=== PATIENT | female | born 1970 | race Caucasian/White ===

== ENCOUNTER 2018-05-06 06:35 | Emergency (ER) | payer MEDICAID ==
[~2018-05-06] VITALS: Ht 160 cm; Wt 85.0 kg
[~2018-05-06 06:35] MED LIST: CYCL-120 PO; DIPH-423 PO; HYDR-3965 PO; HYDR-4353 PO; IBUP-1051 PO; KETO10TA2 PO; LEVO500T89 PO; MACROBID PO; PHEN-786 PO; SUCR1ORA2 PO
[2018-05-06 06:58] LABS: CLARITY,URINE CLOUDY (Clear); COLOR,URINE RED (Yellow); GLUCOSE, URINE NEGATIVE (Neg); KETONES,URINE NEGATIVE (Neg); LEUKOCYTE ESTERASE ,URINE NEGATIVE (Neg); NITRITES, URINE NEGATIVE (Neg); OCCULT BLOOD,URINE LARGE (Neg); PH,URINE 5.5 (4.8-8.0); PROTEIN,URINE 30 mg/dl (Neg); UROBILINOGEN,URINE 0.2 E.U/dL (0.2-1.0)
[2018-05-06 07:05] LABS: UA COLLECTION TYPE CLN CATCH MIDSTREAM
[2018-05-06 07:15] LABS: RBC,URINE TNTC /HPF (0-2); URINE HCG NEGATIVE (NEG); WBC,URINE 0-4 /HPF (0-4)
[2018-05-06 07:16] LABS: BACTERIA,URINE FEW /HPF (Neg); CAL OXALATE CRYSTALS 2+ /HPF (NEGATIVE); MUCUS STRANDS NONE SEEN /LPF (Neg); SQUAMOUS EPITHELIAL CELL,UR FEW /LPF (FEW)
[2018-05-06] MEDS ORDERED: LIDOcaine 2% 10ml TOPICAL JELLY (Urojet) MM ONE (07:25)
[2018-05-06] MEDS ORDERED: CEPH500C5 PO (07:54)
[2018-05-06] MEDS ORDERED: PHEN-716 PO (07:54)
[2018-05-06 08:02] VITALS: BP 136/80
== END 2018-05-06 08:35 | disposition home or self-care (01) ==
LOC: ER 06:35
DX: N93.9 Abnormal uterine and vaginal bleeding, unspecified (principal); R31.9 Hematuria, unspecified; R10.30 Lower abdominal pain, unspecified; M54.5 Low back pain; R39.15 Urgency of urination; R50.9 Fever, unspecified; Z86.73 Personal history of transient ischemic attack (TIA), and cerebral infarction without residual deficits; Z56.0 Unemployment, unspecified; Z88.2 Allergy status to sulfonamides; Z88.8 Allergy status to other drugs, medicaments and biological substances
CPT/HCPCS: 51702; 81001; 81025; 99284

== ENCOUNTER 2021-03-02 07:30 | Inpatient (IN) | payer MEDICAID ==
[~2021-03-02] VITALS: Ht 162.6 cm; Wt 85.0 kg
[2021-03-02] MEDS ORDERED: pantoprazole 40 MG vial IV ONE (08:20)
--- NOTE | 2021-03-02 08:29 | NUR ---
difficult iv start.
[2021-03-02] MEDS ORDERED: ondansetron/PF 4mg/2ml inj IV ONE (09:20)
[2021-03-02] MEDS ORDERED: normal saline 1000ML IV soln IVB ONE ×3 (09:20→11:40)
[2021-03-02 09:27] LABS: EOSINOPHILS % (AUTO) 0 % (0-6); WHITE BLOOD COUNT 5.9 X10'3 (4.5-11.0)
[2021-03-02 09:29] LABS: BASOPHILS % (AUTO) 0.4 % (0-1); HEMATOCRIT 51.1 % (35.0-45.0); HEMOGLOBIN 16.4 g/dl (12.0-16.0); LYMPHOCYTES # (AUTO) 0.6 X10'3 (1.1-4.8); LYMPHOCYTES % (AUTO) 10.5 % (21-51); MEAN CORPUSCULAR HEMOGLOBIN 26.8 PG (27.0-31.0); MEAN CORPUSCULAR HGB CONC 32.1 g/dL (33.0-36.5); MEAN CORPUSCULAR VOLUME 83.6 FL (78-98); MONOCYTES # (AUTO) 0.4 X10'3 (0-0.9); MONOCYTES % (AUTO) 6.4 % (2-12); NEUTROPHILS # (AUTO) 4.8 X10'3 (1.8-7.7); NEUTROPHILS % (AUTO) 82.7 % (42-75); PLATELET COUNT 154 X10'3 (140-440); RED BLOOD COUNT 6.11 X10'6 (4.20-5.60); RED CELL DISTRIBUTION WIDTH 15.1 % (11.5-14.5)
[2021-03-02 09:38] LABS: ALANINE AMINOTRANSFERASE 27 U/L (12-78); ALBUMIN 2.8 G/DL (3.4-5.0); ALBUMIN/GLOBULIN RATIO 0.5 (1.1-1.5); ALKALINE PHOSPHATASE 172 IU/L (46-116); ANION GAP 27 (8-16); ASPARTATE AMINO TRANSFERASE 20 U/L (10-37); BILIRUBIN,TOTAL 0.5 MG/DL (0.1-1.0); BLOOD UREA NITROGEN 23 MG/DL (7-18); BUN/CREATININE RATIO 18.7 (6.6-38.0); CALCIUM 9.1 MG/DL (8.5-10.1); CHLORIDE 100 MMOL/L (99-107); CREATININE 1.23 MG/DL (0.40-0.90); GLUCOSE 445 MG/DL (70-104); LIPASE 60 U/L (73-393); POTASSIUM 4.2 MMOL/L (3.5-5.1); SODIUM 138 MMOL/L (135-145); TOTAL PROTEIN 8.4 G/DL (6.4-8.2); eGFR 46 ML/MIN
[2021-03-02 09:42] LABS: TOTAL CARBON DIOXIDE 11.5 MMOL/L (24-32)
[2021-03-02 10:10] LABS: PLATELET ESTIMATE NORMAL; TOTAL CELLS COUNTED 100
[2021-03-02 10:13] LABS: C-REACTIVE PROTEIN 17.73 MG/DL (0.0-0.5)
[2021-03-02 10:15] LABS: SPHEROCYTES 1+
[2021-03-02 10:16] LABS: LARGE PLATELETS MODERATE; TOXIC GRANULATION 2+
[2021-03-02 10:39] LABS: ABG BASE EXCESS -14.5 mmol/L (-2.0-2.0); ABG HCO3 9.1 mmol/L (22.0-26.0); ABG PCO2 (T) 18.7 mmHg (32.0-45.0); ABG PO2 (T) 73.3 mmHg (75.0-100.0); ALLEN'S TEST POSITIVE; FCOHb 0.3 % (0.0-3.9); FMetHb 0.1 % (0.0-1.5); FO2Hb 93.6 % (94-97); PATIENT TEMPERATURE 36.6; TOTAL HEMOGLOBIN 16.2 G/dl (12.0-16.0)
[2021-03-02 12:07] LABS: CLARITY,URINE SLIGHTLY CLOUDY (Clear); COLOR,URINE YELLOW (Yellow); GLUCOSE, URINE >=1000 mg/dl (Neg); KETONES,URINE >=80 mg/dl (Neg); LEUKOCYTE ESTERASE ,URINE NEGATIVE (Neg); NITRITES, URINE NEGATIVE (Neg); OCCULT BLOOD,URINE TRACE-INTACT (Neg); PH,URINE 5.5 (4.8-8.0); PROTEIN,URINE 30 mg/dl (Neg); UROBILINOGEN,URINE 0.2 E.U/dL (0.2-1.0)
[2021-03-02 12:26] LABS: UA COLLECTION TYPE VOIDED
[2021-03-02 12:27] LABS: BACTERIA,URINE FEW /HPF (Neg); SQUAMOUS EPITHELIAL CELL,UR MANY /LPF (FEW); WBC,URINE 0-4 /HPF (0-4)
[2021-03-02 12:28] LABS: MUCUS STRANDS MODERATE /LPF (Neg)
[2021-03-02 13:43] LABS: ALANINE AMINOTRANSFERASE 23 U/L (12-78); ALBUMIN 2.4 G/DL (3.4-5.0); ALBUMIN/GLOBULIN RATIO 0.5 (1.1-1.5); ALKALINE PHOSPHATASE 153 IU/L (46-116); ANION GAP 21 (8-16); ASPARTATE AMINO TRANSFERASE 16 U/L (10-37); BILIRUBIN,TOTAL 0.4 MG/DL (0.1-1.0); BLOOD UREA NITROGEN 20 MG/DL (7-18); BUN/CREATININE RATIO 17.9 (6.6-38.0); CALCIUM 7.9 MG/DL (8.5-10.1); CHLORIDE 109 MMOL/L (99-107); CREATININE 1.12 MG/DL (0.40-0.90); GLUCOSE 352 MG/DL (70-104); POTASSIUM 4.2 MMOL/L (3.5-5.1); SODIUM 144 MMOL/L (135-145); TOTAL PROTEIN 7.3 G/DL (6.4-8.2); eGFR 52 ML/MIN
[2021-03-02 13:52] LABS: TOTAL CARBON DIOXIDE 13.6 MMOL/L (24-32)
--- NOTE | 2021-03-02 14:18 | NUR ---
DR MCKEON AT BEDSIDE .
[2021-03-02] MEDS ORDERED: ondansetron/PF 4mg/2ml inj IV PRN (14:30)
[2021-03-02] MEDS ORDERED: mag hydrox/Alum hydrox/simeth 30ml oral suspension PO PRN (14:30)
[2021-03-02] MEDS ORDERED: acetaminophen 325mg tablet PO PRN (14:30)
[2021-03-02] MEDS ORDERED: magnesium hydroxide 30ml (MOM) UD suspension PO PRN (14:30)
[2021-03-02] MEDS ORDERED: dextrose 50%-water 50ml dispensing syringe IV PRN ×2 (14:40)
[2021-03-02] MEDS ORDERED: dextrose ORAL solution 15 GM/59 ML bottle PO PRN ×2 (14:40)
[2021-03-02] MEDS ORDERED: MESSAGE TO PHARMACY PO ONE (14:40)
[2021-03-02] MEDS ORDERED: glucagon, human recombinant 1mg kit SUBCUT PRN (14:40)
[2021-03-02] MEDS: normal saline 1000ml 1,000 ML IV SCH ×2 (16:25→21:34)
[2021-03-02 17:55] LABS: BASOPHILS % (AUTO) 0.3 % (0-1); EOSINOPHILS % (AUTO) 0 % (0-6); HEMATOCRIT 50.3 % (35.0-45.0); HEMOGLOBIN 15.9 g/dl (12.0-16.0); LYMPHOCYTES # (AUTO) 0.8 X10'3 (1.1-4.8); LYMPHOCYTES % (AUTO) 15.3 % (21-51); MEAN CORPUSCULAR HEMOGLOBIN 27.4 PG (27.0-31.0); MEAN CORPUSCULAR HGB CONC 31.7 g/dL (33.0-36.5); MEAN CORPUSCULAR VOLUME 86.4 FL (78-98); MEAN PLATELET VOLUME 10.8 FL (7.4-10.4); MONOCYTES # (AUTO) 0.5 X10'3 (0-0.9); NEUTROPHILS # (AUTO) 3.9 X10'3 (1.8-7.7); NEUTROPHILS % (AUTO) 75.4 % (42-75); PLATELET COUNT 149 X10'3 (140-440); RED BLOOD COUNT 5.82 X10'6 (4.20-5.60); RED CELL DISTRIBUTION WIDTH 15.2 % (11.5-14.5); WHITE BLOOD COUNT 5.2 X10'3 (4.5-11.0)
[2021-03-02 17:57] LABS: ALBUMIN 2.4 G/DL (3.4-5.0); ANION GAP 17 (8-16); BLOOD UREA NITROGEN 16 MG/DL (7-18); BUN/CREATININE RATIO 13.8 (6.6-38.0); CHLORIDE 108 MMOL/L (99-107); CREATININE 1.16 MG/DL (0.40-0.90); GLUCOSE 302 MG/DL (70-104); POTASSIUM 4.9 MMOL/L (3.5-5.1); SODIUM 142 MMOL/L (135-145); eGFR 50 ML/MIN
[2021-03-02 18:53] LABS: LARGE PLATELETS FEW; PLATELET ESTIMATE NORMAL
[2021-03-02 18:54] LABS: ANISOCYTOSIS 1+
[2021-03-02] MEDS: docusate sod 100mg capsule PO SCH (19:55)
[2021-03-03] MEDS: insulin Lispro (HumaLOG) vial - multi-dose SQ SCH (01:29)
[2021-03-03] MEDS: normal saline 1000ml 1,000 ML IV SCH ×5 (04:21→18:20)
[2021-03-03 05:26] LABS: BASOPHILS % (AUTO) 0.3 % (0-1); EOSINOPHILS % (AUTO) 0 % (0-6); HEMATOCRIT 47.5 % (35.0-45.0); LYMPHOCYTES % (AUTO) 14.4 % (21-51); MEAN CORPUSCULAR HEMOGLOBIN 27.7 PG (27.0-31.0); MEAN CORPUSCULAR HGB CONC 31.7 g/dL (33.0-36.5); MEAN CORPUSCULAR VOLUME 87.3 FL (78-98); MEAN PLATELET VOLUME 10.8 FL (7.4-10.4); MONOCYTES # (AUTO) 0.7 X10'3 (0-0.9); MONOCYTES % (AUTO) 10.1 % (2-12); NEUTROPHILS # (AUTO) 5.4 X10'3 (1.8-7.7); NEUTROPHILS % (AUTO) 75.2 % (42-75); PLATELET COUNT 152 X10'3 (140-440); RED BLOOD COUNT 5.44 X10'6 (4.20-5.60); RED CELL DISTRIBUTION WIDTH 15.5 % (11.5-14.5); WHITE BLOOD COUNT 7.1 X10'3 (4.5-11.0)
[2021-03-03 07:56] LABS: ALANINE AMINOTRANSFERASE 21 U/L (12-78); ALBUMIN 2.3 G/DL (3.4-5.0); ALBUMIN/GLOBULIN RATIO 0.5 (1.1-1.5); ALKALINE PHOSPHATASE 139 IU/L (46-116); ANION GAP 19 (8-16); ASPARTATE AMINO TRANSFERASE 15 U/L (10-37); BILIRUBIN,TOTAL 0.4 MG/DL (0.1-1.0); BLOOD UREA NITROGEN 13 MG/DL (7-18); BUN/CREATININE RATIO 13.8 (6.6-38.0); CHLORIDE 113 MMOL/L (99-107); CREATININE 0.94 MG/DL (0.40-0.90); GLUCOSE 270 MG/DL (70-104); POTASSIUM 4.1 MMOL/L (3.5-5.1); SODIUM 145 MMOL/L (135-145); TOTAL PROTEIN 7.1 G/DL (6.4-8.2); eGFR 63 ML/MIN
[2021-03-03] MEDS: docusate sod 100mg capsule PO SCH ×2 (08:00→20:14)
[2021-03-03] MEDS: pantoprazole 40 MG vial IV SCH (08:10)
--- NOTE | 2021-03-03 08:35 | NUR ---
called dr navarro for pt co2 12.9 order for abg ,ordered abg on pt ,paged rt .will wait for rt .
[2021-03-03 08:50] LABS: TOTAL CARBON DIOXIDE 12.7 MMOL/L (24-32)
[2021-03-03 09:01] LABS: ABG BASE EXCESS -14.6 mmol/L (-2.0-2.0); ABG HCO3 9.8 mmol/L (22.0-26.0); ABG OXYGEN SATURATION 94.7 % (94-97); ABG PCO2 (T) 21.4 mmHg (32.0-45.0); ABG PO2 (T) 76.2 mmHg (75.0-100.0); ALLEN'S TEST POSITIVE; FCOHb 0.5 % (0.0-3.9); FMetHb 0.1 % (0.0-1.5); FO2Hb 94.1 % (94-97); TOTAL HEMOGLOBIN 15.3 G/dl (12.0-16.0)
--- NOTE | 2021-03-03 09:30 | NUR ---
lab at bedside .
[2021-03-03 09:42] LABS: BASOPHILS % (AUTO) 0.2 % (0-1); EOSINOPHILS % (AUTO) 0.1 % (0-6); HEMATOCRIT 46.9 % (35.0-45.0); LYMPHOCYTES % (AUTO) 13.5 % (21-51); MEAN CORPUSCULAR HEMOGLOBIN 27.4 PG (27.0-31.0); MEAN CORPUSCULAR HGB CONC 31.9 g/dL (33.0-36.5); MEAN CORPUSCULAR VOLUME 85.8 FL (78-98); MEAN PLATELET VOLUME 10.3 FL (7.4-10.4); MONOCYTES # (AUTO) 0.7 X10'3 (0-0.9); MONOCYTES % (AUTO) 9.2 % (2-12); NEUTROPHILS # (AUTO) 5.6 X10'3 (1.8-7.7); PLATELET COUNT 160 X10'3 (140-440); RED BLOOD COUNT 5.46 X10'6 (4.20-5.60); RED CELL DISTRIBUTION WIDTH 15.1 % (11.5-14.5); WHITE BLOOD COUNT 7.2 X10'3 (4.5-11.0)
[2021-03-03 09:46] LABS: ALBUMIN 2.4 G/DL (3.4-5.0); ANION GAP 21 (8-16); BLOOD UREA NITROGEN 13 MG/DL (7-18); BUN/CREATININE RATIO 11.1 (6.6-38.0); CALCIUM 8.1 MG/DL (8.5-10.1); CHLORIDE 109 MMOL/L (99-107); CREATININE 1.17 MG/DL (0.40-0.90); GLUCOSE 342 MG/DL (70-104); POTASSIUM 4.1 MMOL/L (3.5-5.1); SODIUM 144 MMOL/L (135-145); eGFR 49 ML/MIN
[2021-03-03] MEDS ORDERED: sodium bicarbonate (8.4%) inj. 50 MEQ in dextrose 5% water 500ml 250 ML IV PRN (10:20)
[2021-03-03] MEDS ORDERED: sodium bicarbonate (8.4%) inj. 100 MEQ in dextrose 5% water 500ml 500 ML IV PRN (10:20)
[2021-03-03] MEDS ORDERED: insulin regular, human U-100 3ml vial - multi-dose IV PRN (10:20)
--- NOTE | 2021-03-03 10:22 | NUR ---
notifie ddr melanie regarding pt co2 14 as per md pt needs to be on dka protocol ,cintia order dka protocol.will follow the orders.
--- NOTE | 2021-03-03 10:47 | NUR ---
waiting for insulin drip from [facility] .
[2021-03-03] MEDS: Insulin Reg/NS 100units/100mL 100 ML IV SCH (11:35)
[2021-03-03] MEDS: sucralfate 1 gm tablet PO SCH ×3 (11:41→21:05)
[2021-03-03] MEDS ORDERED: insulin regular, human 10 units/0.1 ml syringe IV PRN (12:50)
[2021-03-03] MEDS: cyclobenzaprine 10mg tablet PO SCH ×2 (13:00→20:14)
--- NOTE | 2021-03-03 13:10 | NUR ---
DR SHERWOOD AT BEDSIDE.AWARE OF PT VITALS HR 83,SPO2 99 RA,159/107. Addendum: 03/03/21 at 1330 by [email or web address] PT INSULIN INFUSING AT 5 ML/HR AND IS AWARE.
[2021-03-03 14:31] LABS: ALBUMIN 2.3 G/DL (3.4-5.0); ANION GAP 16 (8-16); BLOOD UREA NITROGEN 11 MG/DL (7-18); BUN/CREATININE RATIO 11.7 (6.6-38.0); CHLORIDE 115 MMOL/L (99-107); CREATININE 0.94 MG/DL (0.40-0.90); GLUCOSE 194 MG/DL (70-104); PHOSPHORUS 1.6 MG/DL (2.3-4.5); POTASSIUM 3.3 MMOL/L (3.5-5.1); SODIUM 146 MMOL/L (135-145); TOTAL CARBON DIOXIDE 15.3 MMOL/L (24-32); eGFR 63 ML/MIN
[2021-03-03] MEDS: potassium CL 20mEq in D5-1/2NS 1,000 ML IV PRN ×2 (15:18→21:52)
--- NOTE | 2021-03-03 17:48 | NUR ---
RECEIVED REPORT FROM TOYA DE AND TOYA CUNHA IN ER. PT GOING TO [id number]
[2021-03-03 18:15] VITALS: BP 144/76
--- NOTE | 2021-03-03 18:22 | NUR ---
PT ARRIVED ON FLOOR AT [id number]
--- NOTE | 2021-03-03 18:55 | NUR ---
Problems reprioritized. Patient report given, questions answered & plan of care reviewed with TOYA DOOLEY.
[2021-03-03 22:00] VITALS: BP 122/64
[2021-03-03 23:35] VITALS: BP 127/72
--- NOTE | 2021-03-04 03:15 | NUR ---
PAGER ID: [phone] MESSAGE: Tamar Kothari [facility] Bed 3008 Dx: COVARMANDO PNA and DKA Clarifying DKA orders with insulin drip and fluids running. Lisa Farias [id number] Addendum: 03/04/21 at 0323 by Lisa Hopper - Traveler RN Dr Palomo contacted. Confirming that 5ml/Hr for pts insulin drip okay, stated that its correct. Protocol being continued. NS discontinued and D5+1/2NS with 20mEq K being continued at 150mL/ hr. aware of Potassium 3.3, redraw for morning labs and anion gap.
[2021-03-04] MEDS: Insulin Reg/NS 100units/100mL 100 ML IV SCH (03:43)
[2021-03-04 03:46] VITALS: BP 130/79
[2021-03-04] MEDS: potassium CL 20mEq in D5-1/2NS 1,000 ML IV PRN (04:46)
--- NOTE | 2021-03-04 04:53 | NUR ---
PAGER ID: [phone] MESSAGE: Tamar Mead [facility] room 3008 Dx DKA, Covid PNA insulin infusion at 5mL/hr and is currently having a BS of 78, trending down quickly. Lisa [phone] Addendum: 03/04/21 at 0537 by Lisa Hopper - Traveler RN Dr Palomo ordered for Insulin drip be DC and to administer 5 Units SUBQ Humulog prior to DC. Fluids of D51/2NS with 20mEqK @ 150 continued.
[2021-03-04] MEDS ORDERED: insulin regular, human 10 units/0.1 ml syringe SQ ONE (05:05)
[2021-03-04] MEDS: insulin Lispro (HumaLOG) vial - multi-dose SQ SCH ×2 (05:20→13:21)
[2021-03-04 06:11] LABS: BASOPHILS % (AUTO) 0.2 % (0-1); EOSINOPHILS % (AUTO) 0.8 % (0-6); HEMATOCRIT 42.5 % (35.0-45.0); HEMOGLOBIN 13.9 g/dl (12.0-16.0); LYMPHOCYTES # (AUTO) 1.4 X10'3 (1.1-4.8); LYMPHOCYTES % (AUTO) 26.8 % (21-51); MEAN CORPUSCULAR HEMOGLOBIN 27.3 PG (27.0-31.0); MEAN CORPUSCULAR HGB CONC 32.8 g/dL (33.0-36.5); MEAN CORPUSCULAR VOLUME 83.3 FL (78-98); MONOCYTES # (AUTO) 0.6 X10'3 (0-0.9); MONOCYTES % (AUTO) 11.7 % (2-12); NEUTROPHILS # (AUTO) 3.1 X10'3 (1.8-7.7); NEUTROPHILS % (AUTO) 60.5 % (42-75); PLATELET COUNT 167 X10'3 (140-440); RED CELL DISTRIBUTION WIDTH 14.7 % (11.5-14.5); WHITE BLOOD COUNT 5.2 X10'3 (4.5-11.0)
[2021-03-04 06:43] LABS: ALANINE AMINOTRANSFERASE 21 U/L (12-78); ALBUMIN/GLOBULIN RATIO 0.5 (1.1-1.5); ALKALINE PHOSPHATASE 115 IU/L (46-116); ANION GAP 11 (8-16); ASPARTATE AMINO TRANSFERASE 20 U/L (10-37); BILIRUBIN,TOTAL 0.5 MG/DL (0.1-1.0); BLOOD UREA NITROGEN 9 MG/DL (7-18); CHLORIDE 115 MMOL/L (99-107); CREATININE 0.75 MG/DL (0.40-0.90); GLUCOSE 73 MG/DL (70-104); SODIUM 148 MMOL/L (135-145); TOTAL CARBON DIOXIDE 21.8 MMOL/L (24-32); TOTAL PROTEIN 6.4 G/DL (6.4-8.2); eGFR 82 ML/MIN
[2021-03-04 06:45] LABS: POTASSIUM 2.9 MMOL/L (3.5-5.1)
--- NOTE | 2021-03-04 06:47 | NUR ---
Patient in room PCU 3008. I have received report from TOYA Gonzalez and had the opportunity to ask questions and assume patient care.
--- NOTE | 2021-03-04 06:49 | NUR ---
Paged Dr Palomo PAGER ID: [phone] MESSAGE: Tamar Dunn [id number] Critical K+ 2.9, Phos 1.0, down from K+3.3, Phos 1.6. Thanks Maggi [phone]
[2021-03-04 07:00] VITALS: BP 126/81
[2021-03-04] MEDS ORDERED: magnesium Cl slow-release 64mg tablet PO PRN (08:15)
[2021-03-04] MEDS ORDERED: potassium Cl 20 mEq SR tablet PO PRN ×2 (08:15)
[2021-03-04] MEDS ORDERED: potassium Cl 40MEQ/1/2NS 520ml 520 ML IV PRN (08:15)
[2021-03-04] MEDS ORDERED: magnesium 4gm in 100ml NS 100 ML IV PRN (08:15)
[2021-03-04] MEDS ORDERED: DEXAMETHASONE 6 MG TABLET PO SCH (08:21)
--- NOTE | 2021-03-04 09:38 | NUR ---
Initial: Pt admit for DKA and COVID-19. Per H&P pt lost her sense of taste and smell 1 week [employer] and had been vomiting for 4 days with poor PO intake for 5 days. Pt denied wt loss or decreased appetite per malnutrition risk screen with RN. No PMH of DM in EMR though BG 445 mg/dL on admit with A1c greater than 14.0%. TC to RN to inform that pt will need official DM diagnosis by physician prior to RD being able to provide pt with DM education. Pt currently on a clear liquid diet, documented to have refused first meal. Limited nutrition interventions given current diet order. LBM 02/27, receiving routine bowel care. Will continue to follow closely. Recommendations: 1) Advance to CHO controlled diet as medically indicated 2) Monitor need for additional protein/ONS with diet advancement 3) Routine bowel care 4) Scaled weight this admit; weekly scaled weights thereafter 5) DM education once stable following official DM dx by physician, A1c greater than 14.0% Addendum: 03/04/21 at [address] Amended: Links added.
[2021-03-04] MEDS ORDERED: potassium Cl 20 mEq SR tablet PO ONE (10:25)
[2021-03-04] MEDS ORDERED: METF-900 PO (10:37)
[2021-03-04] MEDS: docusate sod 100mg capsule PO SCH (10:38)
[2021-03-04] MEDS: pantoprazole 40 MG vial IV SCH (10:38)
[2021-03-04] MEDS: cyclobenzaprine 10mg tablet PO SCH ×2 (10:38→13:22)
[2021-03-04] MEDS: Neutra Phos packet PO SCH ×2 (10:39→13:22)
[2021-03-04] MEDS: sucralfate 1 gm tablet PO SCH ×2 (10:39→12:00)
[2021-03-04] MEDS ORDERED: INSU100C10 SQ (10:39)
--- NOTE | 2021-03-04 10:48 | NUR ---
RN TC: requests DM ed by RD as pt discharging today following new DM DX. Pt has been made aware of new MD DX this admit. Written DM ed w/ RD contact information placed in pt chart and RD contact pt via TC. Pt declines verbal DM ed at this time states "im good". RD encouraged pt to contact dietitian's office if further questions/concerns. RD notified RN of pt ed declination. Addendum: 03/04/21 at [address] Amended: Links added.
[2021-03-04 11:00] VITALS: BP 136/74
[2021-03-04] MEDS ORDERED: Neutra Phos packet PO SCH (13:00)
--- NOTE | 2021-03-04 15:54 | NUR ---
Patient discharged home per md orders. All pt belongings collected and sent with pt. Diabetic education provided, instructions were given to follow up with PCP within 1 week. PIV discontinued, cannula intact. Tele discontinued, telecommunications support informed. New RX faxed to [facility] on [address]. Wheeled pt to lobby, assisted into family vehicle.
[2021-03-04] MEDS ORDERED: K and/or MAG REPLACEMENT MC SCH (20:00)
[2021-03-04] MEDS ORDERED: enoxaparin 40mg/0.4ml syringe SUBCUT SCH (20:00)
== END 2021-03-04 15:00 | disposition home or self-care (01) | DRG 137 ==
LOC: ER 07:32 → ED HOLD 14:35 → ORTHO 4S 03-03 17:55 → PCU 3S 03-03 23:15
PROVIDERS: ADMIT Internal Medicine; ATTEND Internal Medicine
DX: U07.1 COVID-19 (principal); J12.82 Pneumonia due to coronavirus disease 2019; E13.10 Other specified diabetes mellitus with ketoacidosis without coma; K92.0 Hematemesis; E86.0 Dehydration; F17.200 Nicotine dependence, unspecified, uncomplicated; R09.02 Hypoxemia; K21.9 Gastro-esophageal reflux disease without esophagitis; E87.6 Hypokalemia; R10.13 Epigastric pain; G89.29 Other chronic pain; Z79.4 Long term (current) use of insulin; Z86.73 Personal history of transient ischemic attack (TIA), and cerebral infarction without residual deficits; Z87.11 Personal history of peptic ulcer disease; Z87.442 Personal history of urinary calculi; Z98.891 History of uterine scar from previous surgery; Z88.2 Allergy status to sulfonamides; Z88.8 Allergy status to other drugs, medicaments and biological substances; Z56.0 Unemployment, unspecified; Z79.899 Other long term (current) drug therapy
CPT/HCPCS: 36415; 36600; 71045; 80048; 80053; 81001; 82009; 82803; 82948; 83036; 83605; 83690; 84100; 84145; 85007; 85008; 85018; 85025; 86140; 87081; 87635; 99285; C9113; C9803; G0378; J1815; J2405; J3480; J7030

== ENCOUNTER 2022-05-10 19:55 | Emergency (ER) | payer MEDICAID ==
[~2022-05-10] VITALS: Ht 157.5 cm; Wt 90.0 kg
[~2022-05-10 19:55] MED LIST changes: +INSU100C10 SQ; +LEVO-65 PO; -LEVO500T89 PO
[2022-05-10 20:16] VITALS: BP 173/93
[2022-05-10 20:20] LABS: BASOPHILS % (AUTO) 0.9 % (0-1); EOSINOPHILS # (AUTO) 0.1 X10'3 (0-0.9); EOSINOPHILS % (AUTO) 2.3 % (0-6); HEMATOCRIT 39.9 % (35.0-45.0); HEMOGLOBIN 13.3 g/dl (12.0-16.0); LYMPHOCYTES # (AUTO) 1.6 X10'3 (1.1-4.8); LYMPHOCYTES % (AUTO) 31.2 % (21-51); MEAN CORPUSCULAR HEMOGLOBIN 27.6 PG (27.0-31.0); MEAN CORPUSCULAR HGB CONC 33.2 g/dL (33.0-36.5); MEAN CORPUSCULAR VOLUME 83.1 FL (78-98); MEAN PLATELET VOLUME 8.3 FL (7.4-10.4); MONOCYTES # (AUTO) 0.4 X10'3 (0-0.9); MONOCYTES % (AUTO) 7.1 % (2-12); NEUTROPHILS % (AUTO) 58.5 % (42-75); PLATELET COUNT 189 X10'3 (140-440); RED CELL DISTRIBUTION WIDTH 13.6 % (11.5-14.5); WHITE BLOOD COUNT 5.1 X10'3 (4.5-11.0)
[2022-05-10 20:38] LABS: ALANINE AMINOTRANSFERASE 45 U/L (12-78); ALBUMIN 3.3 G/DL (3.4-5.0); ALBUMIN/GLOBULIN RATIO 0.8 (1.1-1.5); ALKALINE PHOSPHATASE 147 IU/L (46-116); ANION GAP 6 (8-16); ASPARTATE AMINO TRANSFERASE 17 U/L (10-37); BILIRUBIN,TOTAL 0.6 MG/DL (0.1-1.0); BLOOD UREA NITROGEN 12 MG/DL (7-18); BUN/CREATININE RATIO 12.1 (6.6-38.0); CHLORIDE 102 MMOL/L (99-107); CREATININE 0.99 MG/DL (0.40-0.90); GLUCOSE 286 MG/DL (70-104); LIPASE 179 U/L (73-393); POTASSIUM 4.5 MMOL/L (3.5-5.1); SODIUM 139 MMOL/L (135-145); TOTAL CARBON DIOXIDE 31.1 MMOL/L (24-32); TOTAL PROTEIN 7.3 G/DL (6.4-8.2); eGFR 59 ML/MIN
== END 2022-05-11 00:43 | disposition left against medical advice (07) ==
LOC: ER 19:55
DX: R10.9 Unspecified abdominal pain (principal); Z53.21 Procedure and treatment not carried out due to patient leaving prior to being seen by health care provider
CPT/HCPCS: 36415; 80053; 83690; 85025

== ENCOUNTER 2022-05-11 05:27 | Emergency (ER) | payer MEDICAID ==
[~2022-05-11] VITALS: Ht 157.5 cm; Wt 85.9 kg
[2022-05-11 05:45] VITALS: BP 186/100
[2022-05-11 06:25] LABS: CLARITY,URINE CLEAR (Clear); COLOR,URINE YELLOW (Yellow); GLUCOSE, URINE 500 mg/dl (Neg); KETONES,URINE NEGATIVE (Neg); LEUKOCYTE ESTERASE ,URINE NEGATIVE (Neg); NITRITES, URINE NEGATIVE (Neg); OCCULT BLOOD,URINE NEGATIVE (Neg); PH,URINE 7.5 (4.8-8.0); PROTEIN,URINE NEGATIVE (Neg); UROBILINOGEN,URINE 0.2 E.U/dL (0.2-1.0)
[2022-05-11 06:40] LABS: UA COLLECTION TYPE CLN CATCH MIDSTREAM
[2022-05-11 07:01] LABS: BASOPHILS % (AUTO) 0.8 % (0-1); EOSINOPHILS # (AUTO) 0.1 X10'3 (0-0.9); EOSINOPHILS % (AUTO) 2.6 % (0-6); HEMOGLOBIN 13.4 g/dl (12.0-16.0); LYMPHOCYTES # (AUTO) 1.2 X10'3 (1.1-4.8); LYMPHOCYTES % (AUTO) 27.6 % (21-51); MEAN CORPUSCULAR HEMOGLOBIN 27.7 PG (27.0-31.0); MEAN CORPUSCULAR HGB CONC 33.5 g/dL (33.0-36.5); MEAN CORPUSCULAR VOLUME 82.8 FL (78-98); MEAN PLATELET VOLUME 8.6 FL (7.4-10.4); MONOCYTES # (AUTO) 0.3 X10'3 (0-0.9); MONOCYTES % (AUTO) 6.9 % (2-12); NEUTROPHILS # (AUTO) 2.7 X10'3 (1.8-7.7); NEUTROPHILS % (AUTO) 62.1 % (42-75); PLATELET COUNT 188 X10'3 (140-440); RED BLOOD COUNT 4.83 X10'6 (4.20-5.60); RED CELL DISTRIBUTION WIDTH 13.3 % (11.5-14.5); WHITE BLOOD COUNT 4.4 X10'3 (4.5-11.0)
[2022-05-11 07:16] LABS: ALANINE AMINOTRANSFERASE 41 U/L (12-78); ALBUMIN 3.2 G/DL (3.4-5.0); ALBUMIN/GLOBULIN RATIO 0.8 (1.1-1.5); ALKALINE PHOSPHATASE 152 IU/L (46-116); ANION GAP 7 (8-16); ASPARTATE AMINO TRANSFERASE 21 U/L (10-37); BILIRUBIN,TOTAL 0.8 MG/DL (0.1-1.0); BLOOD UREA NITROGEN 10 MG/DL (7-18); BUN/CREATININE RATIO 11.6 (6.6-38.0); CALCIUM 8.8 MG/DL (8.5-10.1); CHLORIDE 99 MMOL/L (99-107); CREATININE 0.86 MG/DL (0.40-0.90); GLUCOSE 279 MG/DL (70-104); LIPASE 193 U/L (73-393); SODIUM 134 MMOL/L (135-145); TOTAL CARBON DIOXIDE 28.1 MMOL/L (24-32); TOTAL PROTEIN 7.3 G/DL (6.4-8.2); eGFR 70 ML/MIN
== END 2022-05-11 09:11 | disposition left against medical advice (07) ==
LOC: ER 05:28
DX: R10.9 Unspecified abdominal pain (principal); Z53.21 Procedure and treatment not carried out due to patient leaving prior to being seen by health care provider
CPT/HCPCS: 36415; 80053; 81003; 83690; 85025

== ENCOUNTER 2022-06-18 15:27 | Emergency (ER) | payer MEDICAID ==
[~2022-06-18] VITALS: Ht 157.5 cm; Wt 82.0 kg
[2022-06-18 15:29] VITALS: BP 192/95
== END 2022-06-18 23:11 | disposition left against medical advice (07) ==
LOC: ER 15:27
DX: E11.649 Type 2 diabetes mellitus with hypoglycemia without coma (principal); Z53.21 Procedure and treatment not carried out due to patient leaving prior to being seen by health care provider
CPT/HCPCS: 82948

== ENCOUNTER 2022-11-22 12:43 | Emergency (ER) | payer MEDICAID ==
[~2022-11-22] VITALS: Ht 157.5 cm; Wt 99.8 kg
[2022-11-22 12:43] VITALS: BP 150/102
[2022-11-22 13:05] LABS: CLARITY,URINE SLIGHTLY CLOUDY (Clear); COLOR,URINE YELLOW (Yellow); GLUCOSE, URINE NEGATIVE (Neg); KETONES,URINE TRACE mg/dl (Neg); LEUKOCYTE ESTERASE ,URINE NEGATIVE (Neg); NITRITES, URINE NEGATIVE (Neg); OCCULT BLOOD,URINE NEGATIVE (Neg); PROTEIN,URINE NEGATIVE (Neg); UROBILINOGEN,URINE 0.2 E.U/dL (0.2-1.0)
[2022-11-22 13:07] LABS: UA COLLECTION TYPE CLN CATCH MIDSTREAM; URINE HCG NEGATIVE (NEG)
[2022-11-22 13:11] LABS: BACTERIA,URINE 1+ /HPF (Neg); CAL OXALATE CRYSTALS 3+ /HPF (NEGATIVE); MUCUS STRANDS MODERATE /LPF (Neg); RBC,URINE NONE SEEN /HPF (0-2); SQUAMOUS EPITHELIAL CELL,UR MODERATE /LPF (FEW); WBC,URINE 0-4 /HPF (0-4)
[2022-11-22 13:11] LABS: BASOPHILS % (AUTO) 0.9 % (0-1); EOSINOPHILS # (AUTO) 0.2 X10'3 (0-0.9); EOSINOPHILS % (AUTO) 3.3 % (0-6); HEMATOCRIT 42.2 % (35.0-45.0); HEMOGLOBIN 13.9 g/dl (12.0-16.0); LYMPHOCYTES # (AUTO) 2.3 X10'3 (1.1-4.8); LYMPHOCYTES % (AUTO) 44.5 % (21-51); MEAN CORPUSCULAR HEMOGLOBIN 28.1 PG (27.0-31.0); MEAN PLATELET VOLUME 8.9 FL (7.4-10.4); MONOCYTES # (AUTO) 0.3 X10'3 (0-0.9); MONOCYTES % (AUTO) 5.6 % (2-12); NEUTROPHILS # (AUTO) 2.4 X10'3 (1.8-7.7); NEUTROPHILS % (AUTO) 45.7 % (42-75); PLATELET COUNT 197 X10'3 (140-440); RED BLOOD COUNT 4.96 X10'6 (4.20-5.60); RED CELL DISTRIBUTION WIDTH 14.6 % (11.5-14.5); WHITE BLOOD COUNT 5.2 X10'3 (4.5-11.0)
[2022-11-22 13:20] LABS: ALANINE AMINOTRANSFERASE 53 U/L (12-78); ALBUMIN 3.8 G/DL (3.4-5.0); ALKALINE PHOSPHATASE 117 IU/L (46-116); ANION GAP 5 (8-16); ASPARTATE AMINO TRANSFERASE 24 U/L (10-37); BILIRUBIN,TOTAL 0.5 MG/DL (0.1-1.0); BLOOD UREA NITROGEN 18 MG/DL (7-18); BUN/CREATININE RATIO 17.8 (10.0-20.0); CHLORIDE 107 MMOL/L (99-107); CREATININE 1.01 MG/DL (0.40-0.90); GLUCOSE 109 MG/DL (70-104); LIPASE < 50 U/L (73-393); POTASSIUM 3.6 MMOL/L (3.5-5.1); SODIUM 142 MMOL/L (135-145); TOTAL CARBON DIOXIDE 29.7 MMOL/L (24-32); TOTAL PROTEIN 7.5 G/DL (6.4-8.2); eGFR 58 ML/MIN
[2022-11-22] MEDS ORDERED: HYDROcodone/acetaminophen 10/325mg tab PO ONE (14:15)
[2022-11-22] MEDS ORDERED: ondansetron 4mg rapidly disintigrating tab PO ONE (14:15)
[2022-11-22] MEDS ORDERED: OXYC-150 PO (14:39)
[2022-11-22] MEDS ORDERED: ONDA4TAB12 PO (14:39)
== END 2022-11-22 15:55 | disposition home or self-care (01) ==
LOC: ER 12:43
DX: K80.50 Calculus of bile duct without cholangitis or cholecystitis without obstruction (principal); Z87.442 Personal history of urinary calculi; Z98.890 Other specified postprocedural states; Z56.0 Unemployment, unspecified; Z88.2 Allergy status to sulfonamides; Z88.6 Allergy status to analgesic agent; Z79.899 Other long term (current) drug therapy
CPT/HCPCS: 36415; 76700; 80053; 81001; 81025; 83690; 85025; 99284

== ENCOUNTER 2024-02-12 20:25 | Emergency (ER) | payer MEDICAID ==
[~2024-02-12] VITALS: Ht 157.5 cm; Wt 81.8 kg
[~2024-02-12 20:25] MED LIST changes: +ONDA-243 PO; +OXYC-150 PO
[2024-02-12] MEDS ORDERED: AMOX500C2 PO (20:52)
[2024-02-12] MEDS: amoxicillin 250mg capsule PO ONE (22:02)
[2024-02-12] MEDS: ibuprofen tablet 400 MG TABLET PO ONE (22:02)
[2024-02-12 22:03] VITALS: BP 163/94; PULSE 89; RESP 16; TEMP 97.6; O2SAT 94
== END 2024-02-12 22:14 | disposition home or self-care (01) ==
LOC: ER 20:25
DX: K00.6 Disturbances in tooth eruption (principal); K08.89 Other specified disorders of teeth and supporting structures; Z88.2 Allergy status to sulfonamides; Z79.1 Long term (current) use of non-steroidal anti-inflammatories (NSAID); Z79.2 Long term (current) use of antibiotics; Z79.899 Other long term (current) drug therapy; Z98.890 Other specified postprocedural states
CPT/HCPCS: 99283

== ENCOUNTER 2024-07-30 14:11 | Emergency (ER) | payer MEDICAID ==
[~2024-07-30] VITALS: Ht 157.5 cm; Wt 92.7 kg
[2024-07-30 14:34] VITALS: BP 172/95; PULSE 95; RESP 18; TEMP 97.6; O2SAT 98
[2024-07-30] MEDS ORDERED: DOCU-337 PO (16:26)
== END 2024-07-30 16:34 | disposition left against medical advice (07) ==
LOC: ER 14:12
DX: K59.00 Constipation, unspecified (principal); Z86.73 Personal history of transient ischemic attack (TIA), and cerebral infarction without residual deficits; Z88.5 Allergy status to narcotic agent; Z88.8 Allergy status to other drugs, medicaments and biological substances; Z79.1 Long term (current) use of non-steroidal anti-inflammatories (NSAID); Z79.4 Long term (current) use of insulin; Z79.899 Other long term (current) drug therapy; Z87.442 Personal history of urinary calculi
CPT/HCPCS: 99282

== ENCOUNTER 2024-10-30 03:24 | Emergency (ER) | payer MEDICAID ==
[~2024-10-30] VITALS: Ht 160 cm; Wt 87.1 kg
[~2024-10-30 03:24] MED LIST changes: +DOCU-337 PO
--- NOTE | 2024-10-30 03:56 | Physician Documentation ---
History of Present Illness ~ Chief Complaint: Leg Pain Stated Complaint: LEFT LEG PAIN/SWOLLEN Time Seen by MD: 03:46 Primary Medical Doctor: Malina De Santiago [facility] HPI Patient presents to the emergency room for evaluation of left lower extremity swelling and pain x3 days. She was not on blood thinners. Denies any traumas. No prior instances. Tetanus witin 5 years: Yes Medication Reconciliation Allergies: Coded Allergies: Sulfa (Sulfonamide Antibiotics) (Verified Allergy, Unknown, 07/30/24) tramadol HCl (Verified Allergy, Unknown, 07/30/24) Scheduled PRN Hydrocodone Bit/Acetaminophen 5/325 MG ([place] 5/325 MG), 1-2 TAB PO Q4-6 hours PRN for pain Miscellaneous Medications Home Med List (No Home Medications), (Reported) Discontinued Medications Cyclobenzaprine Hcl (Flexeril), 10 MG PO TID Discontinued Reason: patient no longer taking Diphenhydramine Hcl (Benadryl), 25 MG PO TID PRN for itching Discontinued Reason: patient no longer taking Docusate Sodium (Stool Softener), 1 CAP PO Q12H Discontinued Reason: patient no longer taking Hydrocodone Bit/Acetaminophen ([place] 10-325 Tablet), 1 TAB PO Q6H Discontinued Reason: patient no longer taking Hydrocodone Bit/Acetaminophen 5/325 MG ([place] 5/325 MG), 1-2 TAB PO Q 6 hours prn pain Discontinued Reason: patient no longer taking Ibuprofen* (Motrin*), 800 MG PO TID Discontinued Reason: patient no longer taking Insulin Lispro (Humalog), 2 UNITS SQ ACHS Discontinued Reason: patient no longer taking Ketorolac Tromethamine (Ketorolac Tromethamine), 1 TAB PO Q8HPRN PRN for pain Discontinued Reason: patient no longer taking Levofloxacin (Levofloxacin), 500 MG PO DAILY Discontinued Reason: completed med therapy Nitrofurantoin/Nitrofuran Mac* (Macrobid*), 100 MG PO BID Discontinued Reason: patient no longer taking ONDANSETRON ODT 4mg tablet (Ondansetron Odt), 1 TABLET PO Q6H PRN for nausea/vomiting Discontinued Reason: patient no longer taking Oxycodone HCl/Acetaminophen (Percocet 10-325 mg Tablet), 1 TAB PO TID PRN PRN for pain Discontinued Reason: patient no longer taking Phenazopyridine Hcl (Pyridium tablet), 100 MG PO TIDWM Discontinued Reason: completed med therapy Sucralfate (Carafate), 10 ML PO ACHS Discontinued Reason: patient no longer taking Past Medical History Past Medical History: CVA/TIA/Stroke, Seizures, *GI/HEPATOBILIARY*, Peptic Ulcer Disease, Kidney Stones, UTI Past Surgical History: , other Alcohol Use: None Drug Use: none Lives with: Family Lives In: Home Occupation: unemployed Review of Systems ROS All review of systems negative except as per HPI Physical Exam Vital Signs: Temperature: 98.1, Source: Oral, Heart Rate: 96, Respiratory Rate: 16, BP: 147/92, Pulse Oximetry: 100, Weight: 87.100 Oxygen Flow Rate: 0 Physical Exam General: Patient is awake, alert, oriented x4 in no acute distress and well appearing.~ Head: Normocephalic and atraumatic. Eyes: Conjunctival normal. EOMI. PERRL. ENT: Mucous membranes moist. Neck: Supple, trachea is midline. Chest: Clear to auscultation bilaterally without rales, rhonchi, or wheezes. There is no accessory muscle use or retractions. Cardiac: RRR without murmurs, gallops, or rubs. Abd: Soft, nondistended, nontender, with normoactive bowel sounds. No guarding, rebound, or rigidity. Extremities: Normal strength. Normal range of motion. Noted tight swelling to left calf with tenderness to palpation. No cellulitis Progress Results/Orders Results/Orders Medications Received in ER Medications (Trade) Dose Ordered Sig/Fernando Route PRN Reason Start Time Stop Time Status Last Admin Dose Admin (Tylenol tablet) 650 mg ONCE ONCE PO 10/30/24 03:55 10/30/24 03:56 DC 10/30/24 04:31 650 MG (Motrin tablet) 400 mg ONCE ONCE PO 10/30/24 03:55 10/30/24 03:56 DC 10/30/24 04:30 400 MG Vital Signs 10/30/24 10/30/24 10/30/24 10/30/24 03:27 05:52 06:27 06:29 Temp 98.1 Pulse 96 83 75 Resp 16 16 16 B/P (MAP) 147/92 131/81 (98) 128/76 (93) Pulse Ox 100 99 100 O2 Flow Rate 0 0 0 Laboratory Tests Test 10/30/24 04:25 10/30/24 04:55 White Blood Count 5.8 Red Blood Count 4.50 Hemoglobin 12.6 Hematocrit 37.6 Mean Corpuscular Volume 83.5 Mean Corpuscular Hemoglobin 27.9 Mean Corpuscular Hemoglobin Concent 33.4 Red Cell Distribution Width 13.6 Platelet Count 187 Mean Platelet Volume 9.3 Neutrophils (%) (Auto) 51.4 Lymphocytes (%) (Auto) 38.4 Monocytes (%) (Auto) 5.9 Eosinophils (%) (Auto) 3.4 Basophils (%) (Auto) 0.9 Neutrophils # (Auto) 3.0 Lymphocytes # (Auto) 2.2 Monocytes # (Auto) 0.3 Eosinophils # (Auto) 0.2 Basophils # (Auto) 0.1 CBC Comment D-Dimer Comment Sodium Level 139 Potassium Level 4.1 Chloride Level 104 Carbon Dioxide Level 28.6 Anion Gap 6 L Blood Urea Nitrogen 18 Creatinine 0.92 H Estimated GFR/1.73 m2 64 BUN/Creatinine Ratio 19.6 Glucose Level 337 H Calcium Level 8.5 Albumin 3.2 L Chemistry Comments D-Dimer 0.93 H Medical Decision Making Findings Patient presented to the emergency room with left lower extremity swelling and pain as per HPI. Differentials include but are not limited to cellulitis, DVT, Oquendo's cyst, venous insufficiency. Labs ordered no elevation of white blood cell count which was reassuring for no infection and D-dimer is mildly positive. Vascular ultrasound ordered to rule out DVT. Departure Disposition: HOME / SELF CARE / HOMELESS Impression: Primary Impression: Leg pain Condition: Stable Discharge Instructions: Musculoskeletal Pain Referrals: NO PRIMARY CARE PROVIDER (PCP) Prescriptions Hydrocodone Bit/Acetaminophen 5/325 MG ([place] 5/325 MG) 5 Mg/325 Mg Tablet 1-2 TAB PO Q4-6 hours PRN for pain, #15 TAB Prov: MIKEY GALLEGOS MD 10/30/24 Education Educated: Patient Educated regarding: diagnosis, treatment, need for follow up Signature Scribe Signature: no scribe Attestation: The note accurately reflects work and decisions made by me.Mikey Gallegos MD 10/30/24 06:09 MIKEY GALLEGOS MD October 30, 2024 03:56 VIC CORONA DO October 30, 2024 07:03
[2024-10-30] MEDS: ibuprofen tablet 400 MG TABLET PO ONE (04:30)
[2024-10-30] MEDS: acetaminophen 325mg tablet PO ONE (04:31)
[2024-10-30 04:33] LABS: BASOPHILS # (AUTO) 0.1 X10'3 (0-0.2); BASOPHILS % (AUTO) 0.9 % (0-1); EOSINOPHILS # (AUTO) 0.2 X10'3 (0-0.9); EOSINOPHILS % (AUTO) 3.4 % (0-6); HEMATOCRIT 37.6 % (35.0-45.0); HEMOGLOBIN 12.6 g/dl (12.0-16.0); LYMPHOCYTES # (AUTO) 2.2 X10'3 (1.1-4.8); LYMPHOCYTES % (AUTO) 38.4 % (21-51); MEAN CORPUSCULAR HEMOGLOBIN 27.9 PG (27.0-31.0); MEAN CORPUSCULAR HGB CONC 33.4 g/dL (33.0-36.5); MEAN CORPUSCULAR VOLUME 83.5 FL (78-98); MEAN PLATELET VOLUME 9.3 FL (7.4-10.4); MONOCYTES # (AUTO) 0.3 X10'3 (0-0.9); MONOCYTES % (AUTO) 5.9 % (2-12); NEUTROPHILS % (AUTO) 51.4 % (42-75); PLATELET COUNT 187 X10'3 (140-440); RED CELL DISTRIBUTION WIDTH 13.6 % (11.5-14.5); WHITE BLOOD COUNT 5.8 X10'3 (4.5-11.0)
[2024-10-30 04:40] LABS: ALBUMIN 3.2 G/DL (3.4-5.0); ANION GAP 6 (8-16); BLOOD UREA NITROGEN 18 MG/DL (7-18); BUN/CREATININE RATIO 19.6 (10.0-20.0); CALCIUM 8.5 MG/DL (8.5-10.1); CHLORIDE 104 MMOL/L (99-107); CREATININE 0.92 MG/DL (0.40-0.90); GLUCOSE 337 MG/DL (70-104); POTASSIUM 4.1 MMOL/L (3.5-5.1); SODIUM 139 MMOL/L (135-145); TOTAL CARBON DIOXIDE 28.6 MMOL/L (24-32); eCRCL 59 ML/MIN; eGFR 64 ML/MIN
[2024-10-30 05:16] LABS: D-DIMER 0.93 MG/L FEU (0-0.50)
[2024-10-30] MEDS ORDERED: NO HOME MEDS (05:52)
[2024-10-30] MEDS ORDERED: HYDR-3965 PO (06:09)
[2024-10-30 07:12] VITALS: BP 147/77; PULSE 82; RESP 18; TEMP 98.1; O2SAT 100
--- NOTE | 2024-10-30 07:48 | VASCULAR REPORT ---
EXAM: US Duplex Left Lower Extremity Veins CLINICAL INDICATION: Reason TECHNIQUE: Real-time duplex ultrasound scan of the left lower extremity veins integrating B-mode two -dimensional vascular structure, Doppler spectral analysis, color flow Doppler imaging and compressio n. COMPARISON: None FINDINGS: DEEP VEINS: Unremarkable. No DVT in the visualized common femoral, femoral, proximal deep femoral or popliteal veins. The veins demonstrate normal color flow, are normally compressible, with normal phasic flow and/or augmentation response. SUPERFICIAL VEINS: Unremarkable. No thrombus in the visualized great saphenous vein. SOFT TISSUES: No acute findings. No popliteal cyst. LYMPH NODES: Enlarged left groin lymph node measuring up to 1.7 cm. OTHER FINDINGS: . IMPRESSION: No DVT.
== END 2024-10-30 07:12 | disposition home or self-care (01) ==
LOC: ER 03:25
DX: M79.605 Pain in left leg (principal); Z86.73 Personal history of transient ischemic attack (TIA), and cerebral infarction without residual deficits; Z88.2 Allergy status to sulfonamides; Z88.8 Allergy status to other drugs, medicaments and biological substances; Z87.442 Personal history of urinary calculi; Z56.0 Unemployment, unspecified; Z98.890 Other specified postprocedural states
CPT/HCPCS: 36415; 80048; 85025; 85379; 93971; 99284

== ENCOUNTER 2024-12-10 13:57 | Inpatient (IN) | payer MEDICAID ==
[~2024-12-10] VITALS: Ht 160 cm; Wt 80.0 kg
[~2024-12-10 13:57] MED LIST changes: -CYCL-120 PO; -DIPH-423 PO; -DOCU-337 PO; -HYDR-3965 PO; -HYDR-4353 PO; -IBUP-1051 PO; -INSU100C10 SQ; -KETO10TA2 PO; -LEVO-65 PO; -MACROBID PO; +NO HOME MEDS; -ONDA-243 PO; -OXYC-150 PO; -PHEN-786 PO; -SUCR1ORA2 PO
--- NOTE | 2024-12-10 14:09 | Physician Documentation ---
History of Present Illness General Chief Complaint: Chest Pain Stated Complaint: HYPERGLYCEMIA/CP Time Seen by MD: 14:07 Primary Medical Doctor: Malina [facility] History of Present Illness Initial Comments The patient is a 54-year-old female with a history of insulin-dependent type 2 diabetes (has not taken insulin recently) who developed chest pain and shortness of breath yesterday which has been more or less steady throughout the day. Medication Reconciliation Allergies: Coded Allergies: Sulfa (Sulfonamide Antibiotics) (Verified Allergy, Unknown, 07/30/24) tramadol HCl (Verified Allergy, Unknown, 07/30/24) Scheduled Insulin Glargine,Hum.rec.anlog* (Lantus*), 10 UNITS SQ HS, (Reported) Miscellaneous Medications Home Med List (No Home Medications), (Reported) Past Medical History Past Medical History: CVA/TIA/Stroke, Seizures, *GI/HEPATOBILIARY*, Peptic Ulcer Disease, Kidney Stones, UTI Past Surgical History: , other Smoking: Cigarettes Alcohol Use: None Drug Use: none Lives with: Family Lives In: Home Occupation: unemployed Review of Systems ROS Constitutional: Denies chills, fatigue, fever, weight gain or weight loss. HEENT: Denies hearing loss, sinus pressure or visual changes. Respiratory: Denies cough, shortness of breath or wheezing. Cardiovascular: Chest pain and shortness of breath Gastrointestinal: Denies abdominal pain, blood in stool, constipation, diarrhea, heartburn, loss of appetite, nausea or vomiting. Genitourinary: Denies painful urination (dysuria), excessive amount of urine (polyuria) or urinary frequency. Metabolic/Endocrine: Denies cold intolerance, heat intolerance, excessive thirst (polydipsia) or excessive hunger (polyphagia). Neurological: Denies dizziness, extremity numbness, extremity weakness, headaches, seizures or tremors. Psychiatric: Denies anxiety or depression. Integumentary: Denies breast discharge, breast lump, hives, mole change(s), rash or skin lesion. Musculoskeletal: Denies back pain, joint pain, joint swelling or neck pain. Hematologic: Denies easily bleeding, easily bruises, lymphedema or issues with blood clots. Immunologic: Denies food allergies or seasonal allergies. Physical Exam Physical Exam Vital Signs: Temperature: 98.3, Heart Rate: 90, Respiratory Rate: 12, BP: 154/83, Pulse Oximetry: 98, Weight: 80.000 Oxygen Flow Rate: 0 Physical Exam Physical Exam Vitals and nursing note reviewed. Constitutional: General: Patient is awake, alert, oriented x 4 in no acute distress and well appearing. Speech is clear and lucid. Appearance: Normal appearance. Patient is not ill-appearing, toxic-appearing or diaphoretic. HENT: Head: Normocephalic and atraumatic. Mouth/Throat: Mouth: Mucous membranes are moist. Pharynx: Oropharynx is clear. Eyes: General: No scleral icterus. Extraocular Movements: Extraocular movements intact. Pupils: Pupils are equal, round, and reactive to light. Cardiovascular: Rate and Rhythm: Normal rate and regular rhythm. Heart sounds: No murmur heard. Pulmonary: Effort: No respiratory distress. Breath sounds: No wheezing, rhonchi or rales. Abdominal: General: There is no distension. Palpations: There is no fluid wave, hepatomegaly or mass. Tenderness: There is no abdominal tenderness. There is no guarding. Musculoskeletal: General: No swelling or deformity. Skin: Coloration: Skin is not jaundiced. Findings: No erythema or rash. Neurological: Mental Status: Patient is alert. Progress Results/Orders Results/Orders Orders - SHERLY ALMODOVAR MD Chest,Single View (12/10/24 13:59) Monitor (12/10/24 13:59) Saline Lock (12/10/24 13:59) Oxygen (12/10/24 13:59) Hs Troponin I W Calculations (12/10/24 15:59) Hs Troponin I W Calculations (12/10/24 16:59) Normal Saline 1000ml (Sodium Chloride 10 (12/10/24 15:05) Normal Saline 1000ml (Sodium Chloride 10 (12/10/24 15:05) Page Hospitalist (12/10/24 15:17) Potassium Bicarb 20meq Eff Tab (Effer-K (12/10/24 15:15) Completed Orders - SHERLY ALMODOVAR MD Chest,Single View (12/10/24 13:59) Cbc/Diff (12/10/24 13:59) PBNP (12/10/24 13:59) Hs Troponin I W Calculations (12/10/24 13:59) Stat Ekg (12/10/24 ) CMP (12/10/24 14:07) MG (12/10/24 14:07) D-Dimer (12/10/24 14:07) Hcg Serum Qt (12/10/24 14:07) Pt Inr (12/10/24 14:07) Potassium Cl 10meq/100ml Bag (Potassium (12/10/24 15:05) Potassium Cl 10meq/100ml Bag (Potassium (12/10/24 15:05) Nph, Human Insulin Isophane (Humulin N I (12/10/24 15:10) Insulin Regular, Human (Humulin R 10 Uni (12/10/24 15:23) Vital Signs 12/10/24 12/10/24 12/10/24 12/10/24 14:01 14:08 14:14 14:25 Temp 98.3 Pulse 90 86 Resp 12 16 19 B/P (MAP) 154/83 166/91 (116) Pulse Ox 98 99 99 O2 Delivery Room Air* O2 Flow Rate 0 0 0 FiO2 N/A Laboratory Tests Test 12/10/24 14:11 12/10/24 14:53 White Blood Count 9.4 Red Blood Count 5.01 Hemoglobin 13.9 Hematocrit 41.8 Mean Corpuscular Volume 83.4 Mean Corpuscular Hemoglobin 27.8 Mean Corpuscular Hemoglobin Concent 33.3 Red Cell Distribution Width 13.7 Platelet Count 220 Mean Platelet Volume 9.9 Neutrophils (%) (Auto) 64.2 Lymphocytes (%) (Auto) 29.0 Monocytes (%) (Auto) 4.8 Eosinophils (%) (Auto) 1.4 Basophils (%) (Auto) 0.6 Neutrophils # (Auto) 6.0 Lymphocytes # (Auto) 2.7 Monocytes # (Auto) 0.5 Eosinophils # (Auto) 0.1 Basophils # (Auto) 0.1 CBC Comment Prothrombin Time 9.6 INR International Normalized Ratio 0.9 D-Dimer 1.07 H D-Dimer Comment Coagulation Comments Sodium Level 133 L Potassium Level 4.1 Chloride Level 98 L Carbon Dioxide Level 23.6 L Anion Gap 11 Blood Urea Nitrogen 18 Creatinine 1.09 H Estimated GFR/1.73 m2 53 BUN/Creatinine Ratio 16.5 Glucose Level 685 *H Calcium Level 8.6 Magnesium Level 2.0 Total Bilirubin 0.4 Aspartate Amino Transf (AST/SGOT) 13 Alanine Aminotransferase (ALT/SGPT) 36 Alkaline Phosphatase 185 H Troponin I High Sensitivity 6 Pro-B-Type Natriuretic Peptide 65 Total Protein 7.0 Albumin 2.9 L Globulin 4.1 Albumin/Globulin Ratio 0.7 L HCG Beta Subunit 7 Chemistry Comments Glucometer > 600 *H Medical Decision Making Findings This 54-year-old lady is seen for chest pain and shortness of breath since yesterday. Laboratory data and chest x-ray have been ordered. She has known type 2 diabetes and has not taken insulin or other hypoglycemic agents for 2-3 months. Her glucose came back elevated at 685. However, she has no anion gap, her bicarbonate level is almost normal and no mental status changes. There is no evidence of DKA or hyperosmolar coma. I have ordered hydration with 2 L of saline. Her potassium level is 4.1 and I am giving her 40 mEq of effervescent potassium chloride in addition to 10 units of insulin subcutaneously. She will require admission. She has already received aspirin. YEARS Criteria: 1. Is there clinical evidence of a DVT? 2. Does the patient have hemoptysis? 3. Is PE the most likely diagnosis? If the patient has none of these criteria the normal range adjustment for D- dimer is up to 1.0 micrograms/ml. This patient's D-dimer level is 1.07, barely over the normal range adjustment for years criteria. Thus, it may be reasonable to do a CTA. However, it may be reasonable to 1st hydrate her and allow her insulin to bring the glucose level down before giving her contrast. Departure Disposition: ADMITTED INPATIENT Admitted to Inpatient Unit: to hospitalist Admission Level of Care: PCU with Tele Impression: Primary Impression: Chest pain Additional Impression: Hyperglycemia Condition: Stable Referrals: NO PRIMARY CARE PROVIDER (PCP) Signature Scribe Signature: . Attestation: . SHERLY ALMODOVAR MD Dec 10, 2024 14:09
[2024-12-10 14:17] LABS: BASOPHILS # (AUTO) 0.1 X10'3 (0-0.2); BASOPHILS % (AUTO) 0.6 % (0-1); EOSINOPHILS # (AUTO) 0.1 X10'3 (0-0.9); EOSINOPHILS % (AUTO) 1.4 % (0-6); HEMATOCRIT 41.8 % (35.0-45.0); HEMOGLOBIN 13.9 g/dl (12.0-16.0); LYMPHOCYTES # (AUTO) 2.7 X10'3 (1.1-4.8); MEAN CORPUSCULAR HEMOGLOBIN 27.8 PG (27.0-31.0); MEAN CORPUSCULAR HGB CONC 33.3 g/dL (33.0-36.5); MEAN CORPUSCULAR VOLUME 83.4 FL (78-98); MEAN PLATELET VOLUME 9.9 FL (7.4-10.4); MONOCYTES # (AUTO) 0.5 X10'3 (0-0.9); MONOCYTES % (AUTO) 4.8 % (2-12); NEUTROPHILS % (AUTO) 64.2 % (42-75); PLATELET COUNT 220 X10'3 (140-440); RED BLOOD COUNT 5.01 X10'6 (4.20-5.60); RED CELL DISTRIBUTION WIDTH 13.7 % (11.5-14.5); WHITE BLOOD COUNT 9.4 X10'3 (4.5-11.0)
[2024-12-10] MEDS ORDERED: LANTUS SQ (14:23)
[2024-12-10 14:31] LABS: D-DIMER 1.07 MG/L FEU (0-0.50); PROTHROMBIN TIME 9.6 SECONDS (9.0-12.0)
--- NOTE | 2024-12-10 14:32 | ELECTROCARDIOGRAPH REPORT ---
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
[2024-12-10 14:43] LABS: INR 0.9 INR
[2024-12-10 14:45] LABS: ALANINE AMINOTRANSFERASE 36 U/L (12-78); ALBUMIN 2.9 G/DL (3.4-5.0); ALBUMIN/GLOBULIN RATIO 0.7 (1.1-1.5); ALKALINE PHOSPHATASE 185 IU/L (46-116); ANION GAP 11 (8-16); ASPARTATE AMINO TRANSFERASE 13 U/L (10-37); BILIRUBIN,TOTAL 0.4 MG/DL (0.1-1.0); BLOOD UREA NITROGEN 18 MG/DL (7-18); BUN/CREATININE RATIO 16.5 (10.0-20.0); CALCIUM 8.6 MG/DL (8.5-10.1); CHLORIDE 98 MMOL/L (99-107); CREATININE 1.09 MG/DL (0.40-0.90); POTASSIUM 4.1 MMOL/L (3.5-5.1); PRO BRAIN NATRIURETIC PEPTIDE 65 PG/ML (0-125); SODIUM 133 MMOL/L (135-145); TOTAL CARBON DIOXIDE 23.6 MMOL/L (24-32); eCRCL 50 ML/MIN; eGFR 53 ML/MIN
[2024-12-10 14:59] LABS: BETA HCG,QUANTITATIVE 7 mIU/ml
--- NOTE | 2024-12-10 15:00 | RADIOLOGY REPORT ---
CHEST RADIOGRAPH Indication: CP Technique: Single frontal view of the chest was obtained Comparison: None FINDINGS: The cardiac silhouette is unremarkable. The lungs demonstrate no pulmonary airspace consolidation. Th e pulmonary vasculature is unremarkable. There is no pleural effusion.. There is no pneumothorax. IMPRESSION: No pulmonary airspace consolidation.
[2024-12-10 15:01] LABS: GLUCOSE 685 MG/DL (70-104)
[2024-12-10] MEDS ORDERED: potassium CL 10mEq/100ml bag 100 ML IV SCH ×2 (15:05)
[2024-12-10] MEDS: normal saline 1000ml 1,000 ML IV ONE ×2 (15:51→15:55)
[2024-12-10] MEDS: POTASSIUM BICARB 20meq eff tab 20 MEQ TABLET.EFF PO SCH (15:51)
[2024-12-10] MEDS: insulin regular, human 10 units/0.1 ml syringe SQ STA (15:53)
[2024-12-10] MEDS: NPH, human insulin isophane inj. SQ STA (15:54)
[2024-12-10 16:19] LABS: ABG BASE EXCESS -3.4 mmol/L (-2.0-3.0); ABG HCO3 20.2 mmol/L (21.0-28.0); ABG PCO2 (T) 32.2 mmHg (32.0-45.0); ABG PH (T) 7.415 (7.350-7.450); ABG PO2 (T) 100.8 mmHg (83.0-108.0); ALLEN'S TEST POSITIVE; FMetHb 0.3 % (0.0-1.5); FO2Hb 95.7 % (94.0-98.0); MODE RA; TOTAL HEMOGLOBIN 13.6 G/dl (12.0-16.0)
[2024-12-10] MEDS ORDERED: aminophylline 500mg/20ml vial IV PRN (16:30)
[2024-12-10] MEDS ORDERED: HYDROcodone/acetaminophen 5mg/325mg tablet PO PRN (16:30)
[2024-12-10] MEDS ORDERED: mag hydrox/Alum hydrox/simeth 30ml oral suspension PO PRN (16:30)
[2024-12-10] MEDS ORDERED: potassium Cl 40MEQ/1/2NS 520ml 520 ML IV PRN (16:30)
[2024-12-10] MEDS ORDERED: magnesium sulf-water 2g/50mL 50 ML IV PRN (16:30)
[2024-12-10] MEDS ORDERED: acetaminophen 325mg tablet PO PRN ×2 (16:30)
[2024-12-10] MEDS ORDERED: magnesium hydroxide 30ml (MOM) UD suspension PO PRN (16:30)
[2024-12-10] MEDS ORDERED: nitroGLYCERIN 0.4mg SUBLingual tab SL PRN ×2 (16:30→17:10)
[2024-12-10] MEDS ORDERED: potassium Cl 20 mEq SR tablet PO PRN ×2 (16:30)
[2024-12-10] MEDS ORDERED: magnesium Cl slow-release 64mg tablet PO PRN (16:30)
[2024-12-10] MEDS ORDERED: ondansetron/PF 4mg/2ml inj IV PRN (16:30)
[2024-12-10] MEDS ORDERED: magnesium sulf-water 4G/100mL 100 ML IV PRN (16:30)
[2024-12-10] MEDS ORDERED: metoprolol tartrate 1mg/ml inj IV PRN (16:30)
[2024-12-10] MEDS ORDERED: PERFLUTREN PROTEIN-A MICROSPHR (Optison) 0.22 MG/ML 3ML VIAL IV ONE (16:30)
[2024-12-10] MEDS ORDERED: DEXTROSE 15 GM of carb/4 tabs (each vial/BOTTLE has 4 tablets) PO PRN ×2 (16:40)
[2024-12-10] MEDS ORDERED: dextrose 50%-water 50ml dispensing syringe IV PRN ×2 (16:40)
[2024-12-10] MEDS ORDERED: glucagon, human recombinant 1mg kit SUBCUT PRN (16:40)
[2024-12-10] MEDS ORDERED: losartan 50mg tablet PO SCH (16:45)
--- NOTE | 2024-12-10 16:55 | HISTORY AND PHYSICAL-Residence ---
History & Physical Providers to CC Resident Creating Document: KIERRA RECIO YULISA ~ History of Present Illness Primary Medical Doctor: Malina [facility] Reason for Admit\Complaint: CP to R/O ACS and High RBS History of Present Illness A 54 years old postmenopausal female with a past medical history of post Covid poorly controlled T2DM on Insulin, DKA, Chronic substance use hx ( Tobacco, marijuana, EtOH, cocaine, amphetamine), DVT not treated with anticoagulations, GERD presented with acute central chest pressure with shortness of breaths and tiredness over two days. Pt is currently living with her friend's house as her family (father, sister and daughter) do not let her get in the house after her mother recently from Breast cancer with bone mets since December 07. She could not assess her insulin injection since then. 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 She endorsed that she suddenly felt consistent elephant sitting on her chest pressure over two days which is getting worse and persistent since yesterday at the center of the chest mostly below her bilateral breasts, mostly pressure-like tightness feeling while she was sitting at the car during hot rasheeda day. She had nausea and vomiting for 2 times at the time, radiated to the back but not to the jaw neck and inner side of the left arm. Denies lightheadedness dizziness, syncope, positional change chest pain. She is still smoking 4-5 cigarettes per day which was cut down from 8 per day and she used to smoke half a pack of cigarettes per day for 15 years. She is sober for using substances including marijuana, cocaine, amphetamine. She rarely occasionally drinks light alcohol once in a blue muñoz. She is not currently on any HRT/OC pills. She has been menopausal since 2020. She was diagnosed with a DVT but not treated with anticoagulation in 2020, and never been diagnosed with cancer and not received any recent cancer treatment. No recent viral prodromal symptoms, no recent chest wall injury/trauma. She found to have very high RBS> 600 in ER. She was offered insulin since December 07, and last time HGB A1c was>14 in 2020. She developed her T2DM Vs T1DM after her Covid in 2020 and never been on OHA before. She has a hx of hospitalization for DKA. This time she also felt Tiredness and Peeing a lot with thirst over 2 days. Allergies: Coded Allergies: Sulfa (Sulfonamide Antibiotics) (Verified Allergy, Unknown, 07/30/24) tramadol HCl (Verified Allergy, Unknown, 07/30/24) Home Medications Home Medications Active Reported Lantus* (Insulin Glargine) 100 Unit/1 Ml Vial 10 Units SQ HS No Home Medications (Home Med List) Each Past Medical History Past Medical History post Covid poorly controlled T2DM on Insulin, DKA, Chronic substance use hx ( Tobacco, marijuana, EtOH, cocaine, amphetamine), DVT not treated with anticoagulations, GERD Past Surgical History Surgical History Comment Right ankle repair surgery for broken bone, Past Social History Social History Comment Pt is currently living with her friend's house as her family (father, sister and daughter) do not let her get in the house after her mother recently from Breast cancer with bone mets since December 07. She could not assess her insulin injection since then. 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 She is still smoking 4-5 cigarettes per day which was cut down from 8 per day and she used to smoke half a pack of cigarettes per day for 15 years. She is sober for using substances including marijuana, cocaine, amphetamine. She rarely occasionally drinks light alcohol once in a blue muñoz. Smoking: Cigarettes Alcohol Use: None Drug Use: None Lives with: Family Lives In: Home Occupation: unemployed ROS ROS Hours were reviewed WNL except for the above-mentioned in HPI Exam Vitals: Vital Signs Date Time Temp Pulse Resp B/P (MAP) Pulse Ox O2 Delivery O2 Flow Rate FiO2 12/10/24 14:25 86 19 166/91 (116) 99 0 12/10/24 14:08 Room Air* N/A 12/10/24 14:01 98.3 General: General: Well alert, well oriented, not confused, not agitated, not in acute distress, well cooperated during the physical. HEENT: HEENT: Conjunctive are pink, sclerae clear, no icterus, pupil is equal in both sides, reactive to light, no ear discharge, no pharyngeal erythema or an edema, mouth and lips are dry. Neck: Neck: Supple, no JVD, no lymphadenopathy and thyromegaly. Chest: Lungs: No chest wall tenderness on deep palpation. Equal air entry on both lungs, no additional sounds Cardiovascular: Heart: S1-S2 regular sinus rhythm and, regular rate, no gallops, no rubs, no murmurs Abdomen: Abdomen: No visible peristalsis, Bowel sounds present on auscultation, soft, nontender, no guarding, no rigidity Extremities: Extremities: No obvious deformities,1+ pitting edema bilaterally, capillary refill intact, able to wiggle toes both sides, peripheral pulsations are intact on both sides Central Nervous System: SENIOR PROJECT MANAGER: No focal neurological deficits, no motor and sensory weakness in all 4 extremities, could move all 4 extremities Musculoskeletal: Musculoskeletal: No joint swelling, deformities, inflammations, and no scoliosis and back tenderness Skin: Skin: No active skin lesions and rashes Diagnostic Data Last Recorded Lab Results: 12/10/24 1411 12/10/24 1411 Diagnostic Data: Laboratory Tests Test 12/10/24 14:11 Prothrombin Time 9.6 SECONDS (9.0-12.0) INR International Normalized Ratio 0.9 INR D-Dimer 1.07 MG/L FEU (0-0.50) H D-Dimer Comment Coagulation Comments Additional Plan A 54 years old postmenopausal female with a past medical history of post Covid poorly controlled T2DM on Insulin, DKA, Chronic substance use hx ( Tobacco, marijuana, EtOH, cocaine, amphetamine), DVT not treated with anticoagulations, GERD presented with acute central chest pressure with shortness of breaths and tiredness over two days. # Central Chest pain, to Rule out ACS # High BLood pressure -no ST-T changes in EKG -Serial trop is pending and initial one was 6 -heart score 3, low risk and we will calculate for ASCVD risk after lipid profile will be resulted -Well criteria for PE showed 1.5 low risk, and ABG showed WNL with low Hco3 20. -mildly elevated D Dimer would be from her dehydration -pending Drug tox screen and UA -CXR showed No pulmonary airspace consolidation. -NPO after midnight, tomorrow NM Lexiscan to R/O ACS in presence of HTN DM Smoking and substance use Hx -SL nitroglycerin tablets 0.4 mg Q 15 minutes for 3 times as needed if BP allows for chest pain -chest wall pain control with p.o. acetaminophen as needed -postmenopausal and hCG QT showed 7 and repeated with QL -high blood pressure, started aspirin 81 mg daily, losartan 25 mg daily -pending lipid profile to consider for statin requirement # Poorly controlled post Covid T2DM on Insulin -mostly from the possible post covid T1DM on insulin Vs T2DM on insulin -ABG showed no ANG metabolic acidosis with pH 7.4 -serum anion gap 11 -RBS in ER was 685, given one time dose of IV 10 units regular insulin dropped down to 413 -pending HGB A1c, given sc glargine 10 units at nighttime, medium dose sliding scale regimen, we will consider to adjust and added lispro as per patient's RBS and HGB A1c later -we will consider to add another IV insulin if blood glucose is not controlled above 400 on repeat check -85 g carb controlled diet and education about diabetes and diet with lifestyle modification -pending UA, chest x-ray clear # CARLOS- mostly from Renal tubular stasis # electrolyte imbalances-hypochloremic hyponatremia -Her baseline cr was 0.75 in 2020 -replace electrolytes as per protocol -given IV normal saline 0.9% 100 mL/hr, proBNP WNL with no acute CHF exacerbation at the moment # polysubstance use history( tobacco, marijuana, amphetamine, cocaine, EtOH) -pending drug urine screen -nephrology social worker were requested for placement and relationship with family, appreciate it -we will consider to put the order for substance abuse navigator CODE STATUS: Full code DVT prophylaxis: Sc heparin 5000 units b.i.d. Analgesia/sedation: P.o. acetaminophen/p.o. [place] five as needed Lines/tubes: PIV GI prophylaxis: Protonix Nutrition: 75 g carb controlled diet, heart healthy diet Prognosis: Guarded Disposition: Continue medical management , stress test tomorrow, NPO after midnight, diabetes control, PT eval and DC plan including placement. Resident MD attestation: Patient was seen, examined and discussed with attending MD, Dr. Rekha RECIO MD Internal Medicine Resident, PGY2 [facility] Date of Service: Dec 10, 2024 Billing Provider: LUIS DIAZ MD Common Visit Codes: [id number] INP/OBS CARE (HIGH) KIERRA RECIO, RES Dec 10, 2024 16:55 LUIS DIAZ MD Dec 12, 2024 11:54
[2024-12-10 17:00] VITALS: BP 152/92; PULSE 76; RESP 19; TEMP 98.6; O2SAT 95
[2024-12-10] MEDS: INSULIN LISPRO 100 UNIT/ML INSULN.PEN MULTI-DOSE SQ SCH (17:00)
[2024-12-10 17:10] LABS: PHOSPHORUS 3.7 MG/DL (2.3-4.5)
[2024-12-10 17:11] LABS: THYROID STIMULATING HORMONE 1.12 ulU/ml (0.34-4.50)
[2024-12-10 17:41] LABS: PRO BRAIN NATRIURETIC PEPTIDE 65 PG/ML (0-125)
[2024-12-10 17:49] LABS: HEMOGLOBIN A1C > 12.0 % (4.5-6.2)
[2024-12-10 18:00] VITALS: BP 143/98; PULSE 78; RESP 15; TEMP 97.3; O2SAT 100
[2024-12-10] MEDS: aspirin 81mg, enteric-coated 1 TAB TABLET.DR PO SCH (18:45)
[2024-12-10] MEDS: pantoprazole 40mg Tablet.DR PO SCH ×2 (18:46→23:23)
[2024-12-10] MEDS: losartan 25mg tablet PO ONE (18:47)
[2024-12-10] MEDS: normal saline 1000ml 1,000 ML IV SCH (18:49)
[2024-12-10] MEDS: insulin regular, human 10 units/0.1 ml syringe IV ONE (19:05)
[2024-12-10 19:17] VITALS: RESP 19; O2SAT 98
[2024-12-10] MEDS: K and/or MAG REPLACEMENT MC SCH (20:00)
[2024-12-10] MEDS: docusate sod 100mg capsule PO SCH (20:58)
[2024-12-10] MEDS: heparin, porcine 5000 units/ml vial SQ SCH (20:58)
[2024-12-10 21:00] VITALS: RESP 15; O2SAT 97
[2024-12-10] MEDS: insulin glargine (Lantus) pen - multi-dose SQ SCH (21:37)
[2024-12-10 22:00] VITALS: BP 144/86; PULSE 79; RESP 12; TEMP 98.4; O2SAT 96
[2024-12-11] VITALS (12 sets, daily range): BP systolic 128–179; BP diastolic 68–94; PULSE 71–102; RESP 14–16; TEMP 97.5–99; O2SAT 97–100
[2024-12-11] MEDS: nicotine 14mg patch - 24hr TD SCH (00:47)
[2024-12-11 05:45] LABS: BASOPHILS % (AUTO) 0.7 % (0-1); EOSINOPHILS # (AUTO) 0.2 X10'3 (0-0.9); EOSINOPHILS % (AUTO) 2.6 % (0-6); HEMATOCRIT 41.3 % (35.0-45.0); HEMOGLOBIN 13.7 g/dl (12.0-16.0); LYMPHOCYTES # (AUTO) 2.7 X10'3 (1.1-4.8); LYMPHOCYTES % (AUTO) 38.5 % (21-51); MEAN CORPUSCULAR HEMOGLOBIN 27.5 PG (27.0-31.0); MEAN CORPUSCULAR HGB CONC 33.3 g/dL (33.0-36.5); MEAN CORPUSCULAR VOLUME 82.6 FL (78-98); MEAN PLATELET VOLUME 9.9 FL (7.4-10.4); MONOCYTES # (AUTO) 0.4 X10'3 (0-0.9); MONOCYTES % (AUTO) 5.2 % (2-12); NEUTROPHILS # (AUTO) 3.7 X10'3 (1.8-7.7); PLATELET COUNT 227 X10'3 (140-440); RED BLOOD COUNT 5.01 X10'6 (4.20-5.60); RED CELL DISTRIBUTION WIDTH 13.7 % (11.5-14.5)
[2024-12-11 05:58] LABS: ALANINE AMINOTRANSFERASE 32 U/L (12-78); ALBUMIN 2.6 G/DL (3.4-5.0); ALBUMIN/GLOBULIN RATIO 0.7 (1.1-1.5); ALKALINE PHOSPHATASE 154 IU/L (46-116); ANION GAP 8 (8-16); ASPARTATE AMINO TRANSFERASE 17 U/L (10-37); BILIRUBIN,TOTAL 0.5 MG/DL (0.1-1.0); BLOOD UREA NITROGEN 13 MG/DL (7-18); BUN/CREATININE RATIO 13.7 (10.0-20.0); CALCIUM 8.1 MG/DL (8.5-10.1); CHLORIDE 105 MMOL/L (99-107); CHOL/HDL RATIO 5.4 (0.00-4.99); CHOLESTEROL 190 MG/DL (0-200); CREATININE 0.95 MG/DL (0.40-0.90); GLUCOSE 288 MG/DL (70-104); HDL CHOLESTEROL 35 MG/DL (35-60); LDL CHOLESTEROL 114 MG/DL (50-100); MAGNESIUM 1.8 MG/DL (1.5-2.4); SODIUM 139 MMOL/L (135-145); TOTAL CARBON DIOXIDE 26.4 MMOL/L (24-32); TOTAL PROTEIN 6.4 G/DL (6.4-8.2); TRIGLYCERIDES 160 MG/DL (20-135); eCRCL 57 ML/MIN; eGFR 62 ML/MIN
[2024-12-11] MEDS: losartan 25mg tablet PO SCH (07:30)
[2024-12-11] MEDS: INSULIN LISPRO 100 UNIT/ML INSULN.PEN MULTI-DOSE SQ SCH (09:00)
[2024-12-11] MEDS: regadenoson 0.4mg/5ml syringe IV PRN (10:16)
--- NOTE | 2024-12-11 14:44 | RADIOLOGY REPORT ---
Procedure: NM NM HORTENSIA SCAN Exam Date: 12/11/2024 09:11 AM Reason for study/Clinical History: DM HTN DVT Comparison Study: None Myocardial Perfusion Study with SPECT Technique: The patient received an intravenous injection of 7.9 mCi of technetium-99m sestamibi whi le at rest. After a short delay, SPECT tomographic images of the heart were obtained. The patient leon weir went to the stress lab where they received an intravenous Lexiscan utilizing standard protocol. 36 mCi of technetium-99m sestamibi was injected intravenously immediately after the start of the in fusion. Gated SPECT tomographic images of the heart were acquired and processed. Findings: Rotating planar images show no significant attenuation artifact. The left ventricular size is within normal limits. Stress tomographic images demonstrate normal perfusion. Resting tomographic images demonstrate a similar pattern. Gated portion of the study shows normal wall motion and myocardial thickening. The left ventricular ejection fraction is 58%. (normal greater than 50%) Impression: Normal left ventricular size, wall motion, and function, without evidence of infarction or of myocard ium at ischemic risk. The left ventricular ejection fraction is 58%.
[2024-12-11] MEDS ORDERED: DOCU100C40 PO (14:57)
[2024-12-11] MEDS ORDERED: ASPI-1071 PO (14:57)
[2024-12-11] MEDS ORDERED: LOSA50TA64 PO (14:57)
[2024-12-11] MEDS ORDERED: INSU300I12 SQ (15:07)
[2024-12-11] MEDS ORDERED: PANT40TA54 PO (15:07)
--- NOTE | 2024-12-11 18:31 | CARDIOLOGY REPORT ---
APPROVED REPORT EXAM: Comprehensive 2D, Doppler, and color-flow Echocardiogram. Patient Location: [address] Heart Rate: 70's bpm Rhythm: SINUS Indications CONGESTIVE HEART FAILURE DIABETES MELLITUS CHEST PAIN SHORTNESS OF BREATH Liquid Flavor Compounder: NONE Previous echo: NONE 2D Dimensions RVDd 3.3 cm IVSd 1.1 (0.7-1.1cm) LVDd 3.9 cm PWd 1.1 (0.7-1.1cm) IVSs 1.7 (0.8-1.2cm) LVDs 2.1 (2.5-4.0cm) PWs 1.1 (0.8-1.2cm) LVOT Diameter 1.95 (1.8-2.4cm) LVEF(%) 78.8 (>50%) Ao Asc Diam.3.60 cm FS (%) 46.8 % SV 52.0 ml CO 4.0 L/min M-Mode Dimensions Left Atrium(MM) 3.30 (2.5-4.0cm) Aortic Root 3.74 (2.2-3.7cm) Aortic Cusp Exc 2.20 (1.5-2.0cm) Aortic Valve AoV Peak Mike. 116.4 cm/s AoV VTI 24.8 cm AO Peak GR. 5.4 mmHg AO Mean GR. 4 mmHg LVOT VTI 24.59 cm LVOT Peak Mike. 101.1 cm/s JENNI(VTI)/BSA 2.95 cm2/m2 JENNI (VTI) 2.95 cm2 Mitral Valve MV E Velocity 55.8 cm/s MV Peak Gr. 3 mmHg MV DECEL TIME 236 ms MV A Velocity 82.5 cm/s MV PHT 60 ms E/A Ratio 0.7 MVA (PHT) 3.67 cm2 MV VMax89.0 cm/s Tricuspid Valve TR P. Velocity 238 cm/s RAP ESTIMATE 10 mmHg TR Peak Gr. 23 mmHg RVSP 33 mmHg LEFT VENTRICLE Normal LV size and wall thickness. Overall systolic function is hyperdynamic. LVEF is 70-75%. RIGHT VENTRICLE RV is normal size and function. ATRIA The left atrium size is normal. AORTIC VALVE Trileaflet AV appears normal without stenosis. No insufficiency. MITRAL VALVE Mild MV annular calcification without stenosis. Trace regurgitation. TRICUSPID VALVE TV appears structurally normal with trace regurgitation. PULMONIC VALVE Normal PV without stenosis, no insufficiency. GREAT VESSELS Aortic root is mildly dilated. The ascending aorta is normal in size. IVC appears normal in s ize and collapses greater than 50% with inspiration. PERICARDIUM Normal pericardium. No effusion. Other Information Study Quality: Adequate Conclusion Normal LV size and wall thickness. Overall systolic function is hyperdynamic. LVEF is 70-75%. RV is normal size and function. The left atrium size is normal. Trileaflet AV appears normal without stenosis. No insufficiency. Mild MV annular calcification without stenosis. Trace regurgitation. TV appears structurally normal with trace regurgitation. Normal pericardium. No effusion.
--- NOTE | 2024-12-11 18:35 | DISCHARGE SUMMARY-Residence ---
Discharge Summary Providers to CC Resident Creating Document: KIERRA RECIO, YULISA ~ Discharge Summary Admission Diagnosis: CP to R/O ACS, High RBS Hospital Course DATE OF ADMISSION: 12/10/2024 DATE OF DISCHARGE: 12/11/2024 Discharge Diagnosis\Comment: # Central Chest pain, ruled out ACS- Marquita scan negative # High BLood pressure # Poorly controlled post Covid T2DM on Insulin # CARLOS- mostly from Renal tubular stasis # electrolyte imbalances-hypochloremic hyponatremia # polysubstance use history( tobacco, marijuana, amphetamine, cocaine, EtOH) Operations\Procedures: [place] cardiac Lexiscan Consultants: None Complications: None Condition on DC: Stable New Medications: Insulin Glargine,Hum.rec.anlog (Insulin Glargine Solostar) 300 Unit/Ml (1.5 Ml) Insuln.pen 10 UNITS SQ HS for 30 Days, #1 APPLIC Aspirin (Ecotrin*) 81 Mg Tablet.dr 1 TAB PO DAILY for 30 Days, #30 TAB.SR Docusate Sodium (Docusate Sodium) 100 Mg Caps 100 MG PO BID PRN for constipation for 30 Days, #60 CAP Losartan Potassium (Losartan Potassium) 50 Mg Tablet 50 MG PO DAILY for 30 Days, #30 TAB Pantoprazole Sodium (Pantoprazole Sodium) 40 Mg Tablet.dr 40 MG PO BKF for 30 Days, #30 TAB.SR Discharge Summary: A 54 years old postmenopausal female with a past medical history of post Covid poorly controlled T2DM on Insulin, DKA, Chronic substance use hx ( Tobacco, marijuana, EtOH, cocaine, amphetamine), DVT not treated with anticoagulations, GERD presented with acute central chest pressure with shortness of breaths and tiredness over two days. Hospital course: Patient was admitted to the hospital to rule out ACS in the setting of uncontrolled and poorly controlled diabetes mellitus and polysubstance abuse history. There was no ST-T changes in EKG, Serial trop showed 6, 7, and 7. Her heart score 3, low risk and calculated ASCVD risk was >21% and started PO atorvastatin 20 mg daily with a goal LDL level of <55. Her D Dimer was mildly elevated and her Well criteria for PE showed 1.5 low risk, and ABG showed WNL with low Hco3 20. SL nitroglycerin tablets 0.4 mg Q 15 minutes for 3 times were prescribed as needed if BP allows for chest pain. We started aspirin 81 mg daily, losartan 25 mg daily. She underwent NM Marquita scan on 12/11/2024 showed Normal left ventricular size, wall motion, and function, without evidence of inf arction or of myocardium at ischemic risk. Her 2D echocardiogram showed LVEF 70-75%, hyperdynamic systolic function, trace MR, TR, normal pericardium and no effusion. On admission, ABG showed no ANG-metabolic acidosis with pH 7.4 and serum anion gap was 11. Her RBS in ER was 685, she was given one time dose of IV 15 units regular insulin. Her HbA1C was >12. Her Blood sugar was controlled with medium dose sliding scale regimen, lispro 6 units after meals and glargine 10 units at nighttime. 75 g carb controlled diet and education about diabetes and diet with lifestyle modification were provided. Her CXR showed No pulmonary airspace consolidation. We replaced electrolytes as per protocol as needed and she was given IV normal saline 0.9% 100 mL/hr, proBNP WNL with no acute CHF exacerbation at the moment. Her Drug urine screen was taking and pending, however, executive secretary social welfare were requested and so were substance abuse navigation. DVT prophylaxis was achieved with the sc heparin 5000 units b.i.d.. Pain was controlled well with the p.o. acetaminophen/[place] five as needed. She was given Protonix for her possible GERD exacerbation. All of her concerns were addressed and answered with the best knowledge of our team before she was discharged. Oropharynx were reviewed WNL with WBC 7, hemoglobin 13.7, hematocrit 41.3, platelet count 227, serum sodium 139, potassium four, chloride 105, BUN 13, creatinine 0.95, RBS 289, triglyceride 160, total cholesterol 190, LDL 114, HDL 35, and TSH 1.12. All of her vitals were stable at the moment with temp 98.2 F, [place] 80/minute, RR 16/minute, BP 148/92 mm Hg, pulse oximetry 97% on room air. On exam, General: Well alert, well oriented, not confused, not agitated, not in acute distress, well cooperated during the physical. HEENT: Conjunctive are pink, sclerae clear, no icterus, pupil is equal in both sides, reactive to light, no ear discharge, no pharyngeal erythema or an edema, mouth and lips are moist. Neck: Supple, no JVD, no lymphadenopathy and thyromegaly. Lungs: No chest wall tenderness on deep palpation. Equal air entry on both lungs, no additional sounds Heart: S1-S2 regular sinus rhythm and, regular rate, no gallops, no rubs, no murmurs Abdomen: No visible peristalsis, Bowel sounds present on auscultation, soft, nontender, no guarding, no rigidity Extremities: No obvious deformities,1+ pitting edema bilaterally, capillary refill intact, able to wiggle toes both sides, peripheral pulsations are intact on both sides PURCHASING ASSOCIATE: No focal neurological deficits, no motor and sensory weakness in all 4 extremities, could move all 4 extremities Musculoskeletal: No joint swelling, deformities, inflammations, and no scoliosis and back tenderness Skin: No active skin lesions and rashes Discharge instructions: -please return to ER for any emergency conditions including intolerable chest pressure/discomfort/pain, passing out episode, intolerable progressive shortness of breaths etc. -follow up with PCP and Cardiology in the outpatient setting in 1-2 weeks after discharge for further management including CBC, CMP, rechecked and diabetes control -being compliance with medications especially for insulin is important to prevent cardiovascular risks in the future -modified lifestyle with active moderate exercises are strongly encourage -strongly encouraged to quit using substances before discharge Resident MD attestation: Patient was seen, examined and discussed with attending MD, Dr. Rekha RECIO MD Internal Medicine Resident, PGY2 [facility] *Problems/Diagnosis: (1) Ruled out for myocardial infarction Status: Resolved Total Time Spent on D/C: > 30 Minutes Date of Service: Dec 11, 2024 Billing Provider: LUIS DIAZ MD Common Visit Codes: 60073-BRN/OBS DISCH DAY >30min KIERRA RECIO, YULISA Dec 11, 2024 15:00 LUIS DIAZ MD Dec 12, 2024 12:07
[2024-12-12] MEDS ORDERED: amLODIPine 2.5mg tablet PO SCH (08:00)
[2024-12-12] MEDS ORDERED: atorvastatin 20mg tablet PO SCH (08:00)
[2024-12-12] MEDS ORDERED: losartan 50mg tablet PO SCH (08:00)
== END 2024-12-11 15:52 | disposition home or self-care (01) | DRG 420 ==
LOC: ER 13:58 → ED HOLD 15:38 → PCU 3S 16:55
PROVIDERS: ADMIT Internal Medicine; ATTEND Internal Medicine
PROC: 4A02XM4 Measurement of Cardiac Total Activity, External Approach (ICD-10-PCS; principal; 2024-12-11)
PROC: 3E033HZ Introduction of Radioactive Substance into Peripheral Vein, Percutaneous Approach (ICD-10-PCS; 2024-12-11)
DX: E11.65 Type 2 diabetes mellitus with hyperglycemia (principal); N17.0 Acute kidney failure with tubular necrosis; E87.8 Other disorders of electrolyte and fluid balance, not elsewhere classified; R07.89 Other chest pain; E87.1 Hypo-osmolality and hyponatremia; Z88.2 Allergy status to sulfonamides; Z79.4 Long term (current) use of insulin; Z98.891 History of uterine scar from previous surgery; Z87.891 Personal history of nicotine dependence; Z86.73 Personal history of transient ischemic attack (TIA), and cerebral infarction without residual deficits; Z88.8 Allergy status to other drugs, medicaments and biological substances
CPT/HCPCS: 36415; 36600; 71045; 78452; 80053; 80061; 82803; 82948; 83036; 83735; 83880; 84100; 84443; 84484; 84702; 85018; 85025; 85379; 85610; 87081; 93005; 93017; 93306; 96372; 99285; A9500; G0378; J1644; J1815; J2785; J7030

== ENCOUNTER 2025-04-19 20:49 | Emergency (ER) | payer MEDICAID, SELFPAY ==
[~2025-04-19] VITALS: Ht 157.5 cm; Wt 72.7 kg
[~2025-04-19 20:49] MED LIST changes: +ASPI-1071 PO; +DOCU100C40 PO; +INSU300I12 SQ; +LANTUS SQ; +LOSA50TA64 PO; +PANT40TA54 PO
[2025-04-19 20:58] VITALS: BP 167/86; PULSE 89; RESP 20; O2SAT 100
--- NOTE | 2025-04-19 21:43 | Physician Documentation ---
History of Present Illness ~ Chief Complaint: Eye Pain Stated Complaint: EYE PAIN Time Seen by MD: 21:19 Primary Medical Doctor: Malina [facility] HPI 55-year-old female who presents to the emergency department for evaluation of the right eye injury. Reports that this morning about 11:00 a.m. she walked into [employer] and believes that she may of scratched her cornea. She has had tearing and irritation since that time. She has had to wear a patch over eye due to the irritation. Denies prior injury. Denies wearing contacts or prescription lenses. Medication Reconciliation Allergies: Coded Allergies: Sulfa (Sulfonamide Antibiotics) (Verified Allergy, Unknown, 07/30/24) tramadol HCl (Verified Allergy, Unknown, 07/30/24) Scheduled Aspirin (Ecotrin*), 1 TAB PO DAILY Insulin Glargine,Hum.rec.anlog (Insulin Glargine Solostar), 10 UNITS SQ HS Insulin Glargine,Hum.rec.anlog* (Lantus*), 10 UNITS SQ HS, (Reported) Losartan Potassium (Losartan Potassium), 50 MG PO DAILY Pantoprazole Sodium (Pantoprazole Sodium), 40 MG PO BKF Scheduled PRN Docusate Sodium (Docusate Sodium), 100 MG PO BID PRN for constipation Miscellaneous Medications Home Med List (No Home Medications), (Reported) Past Medical History Past Medical History: CVA/TIA/Stroke, Seizures, *GI/HEPATOBILIARY*, Peptic Ulcer Disease, Kidney Stones, UTI Past Surgical History: , other Patient History: Patient reports no known family medical history. Alcohol Use: None Drug Use: none Lives with: Family Lives In: Home Occupation: unemployed Review of Systems All Other Systems at this time: Reviewed and Negative Eyes: Reports: see HPI Physical Exam Vital Signs: RN Vital Signs have been reviewed: Yes, Temperature: 98.0, Heart Rate: 89, Respiratory Rate: 20, BP: 167/86, Pulse Oximetry: 100, Weight: 72.700 Oxygen Flow Rate: 0 General Appearance: alert, WD/WN, mild distress Eye Lid: other (Hyphema); No: discharge Conjunctiva: injection Cornea: abrasion; No: foreign body, ulcer Pupils/EOM/Fundus: PERRLA; No: hemorrhage (R) Slit Lamp Exam: + flourescein stain (At 6 o'clock position) Face: normal inspection Head: normal inspection Neck: non-tender Respiratory: no respiratory distress Chest: no accessory muscle use Neurologic: oriented x4 Psychiatric: normal mood/affect Progress Results/Orders Results/Orders Completed Orders - KAVON NUNEZ Tetracaine 0.5% Ophth Drops (Tetravisc 0 (04/19/25 21:30) Vital Signs 04/19/25 20:58 Temp 98.0 Pulse 89 Resp 20 B/P (MAP) 167/86 Pulse Ox 100 O2 Flow Rate 0 Medical Decision Making Additional information obtaine: N/A Findings Examination history warrants fluorescein staining to evaluate for corneal abrasion ulcerations or foreign bodies. Fluorescein stain after two drops of tetracaine in the right eye was positive for corneal abrasion at the 6 o'clock position. Patient is provided 1st dose ofloxacin and Acular for discomfort. He is discharged in stable condition to follow up with Optometry/biology laboratory assistant and return to the emergency department if worse. No hyphema noted on physical exam and no clinical suspicion for uveitis. Patient is safe for discharge. Ear Diff. Dx: Considerations: Include: Other (Noncontributory) Eye Diff. Dx: Considerations: Include: Conjuctivitis-bacterial, Conjuctivitis- viral, Corneal abrasion, Corneal laceration, Corneal ulceration, Foreign body- conjuctiva, Glaucoma, Globe rupture, Iritis, Uveitis Nose Diff. Dx: Considerations: Include: Other Tooth Diff. Dx: Considerations: Include: Other Throat Diff Dx: Considerations: Include: Other (Noncontributory) Departure Disposition: HOME / SELF CARE / HOMELESS Impression: Primary Impression: Corneal abrasion Qualified Codes: S05.01XA - Injury of conjunctiva and corneal abrasion without foreign body, right eye, initial encounter Condition: Improved Discharge Instructions: Corneal Abrasion Additional Instructions: Tonight while in the emergency department you were noted to have a corneal abrasion. You received 1st dose antibiotic and pain management. Please continue with drops as directed. Acular: 1-2 drops every 6 hours for pain Ofloxacin ophthalmic drops: 1-2 drops every 6 hours for pain x 5 days Referrals: NO PRIMARY CARE PROVIDER (PCP) Education Educated: Patient Educated regarding: diagnosis, treatment, prognosis, need for follow up Signature Scribe Signature: . Attestation: . KAVON NUNEZ Apr 19, 2025 21:43
[2025-04-19] MEDS: ofloxacin 0.33% 5ml ophthalmic drops RIGHTEYE STA (22:05)
[2025-04-19] MEDS: TETRACAINE 0.5% 4 ML OPHTHALMIC DROPS RIGHTEYE ONE (22:05)
[2025-04-19 22:10] VITALS: TEMP 98
== END 2025-04-19 22:10 | disposition home or self-care (01) ==
LOC: ER 20:49
DX: S05.01XA Injury of conjunctiva and corneal abrasion without foreign body, right eye, initial encounter (principal); Z88.2 Allergy status to sulfonamides; Z88.6 Allergy status to analgesic agent; Z87.442 Personal history of urinary calculi; Z87.440 Personal history of urinary (tract) infections; Z86.73 Personal history of transient ischemic attack (TIA), and cerebral infarction without residual deficits; Z56.0 Unemployment, unspecified; Z87.11 Personal history of peptic ulcer disease; Z79.4 Long term (current) use of insulin; Z79.899 Other long term (current) drug therapy; X58.XXXA Exposure to other specified factors, initial encounter; Y93.89 Activity, other specified; Y92.89 Other specified places as the place of occurrence of the external cause; Y99.8 Other external cause status
CPT/HCPCS: 99283

== ENCOUNTER 2025-06-18 01:35 | Emergency (ER) | payer MEDICAID ==
[~2025-06-18] VITALS: Ht 160 cm; Wt 81.2 kg
[2025-06-18 01:43] VITALS: BP 142/86; PULSE 98; RESP 16; O2SAT 98
[2025-06-18] MEDS ORDERED: AMOX500C2 PO (03:30)
--- NOTE | 2025-06-18 03:30 | Physician Documentation ---
HPI ~ General Chief Complaint: Tooth Problem Stated Complaint: TOOTH PAIN Time Seen by MD: 03:21 Primary Medical Doctor: [facility] History of Present Illness HPI Comment Patient presents to the emergency room with dental pain over her left incisor that has been going on for the past week. Patient is working to get an appointment for a dentist with her primary care provider. No recent antibiotics however patient did take a tablet of Bactrim of her mother that has that she had leftover which she states she is allergic do in causes her to get sick. No fevers Medication Reconciliation Allergies: Coded Allergies: Sulfa (Sulfonamide Antibiotics) (Verified Allergy, Unknown, 07/30/24) tramadol HCl (Verified Allergy, Unknown, 07/30/24) Scheduled Aspirin (Ecotrin*), 1 TAB PO DAILY Insulin Glargine,Hum.rec.anlog (Insulin Glargine Solostar), 10 UNITS SQ HS Insulin Glargine,Hum.rec.anlog* (Lantus*), 10 UNITS SQ HS, (Reported) Losartan Potassium (Losartan Potassium), 50 MG PO DAILY Pantoprazole Sodium (Pantoprazole Sodium), 40 MG PO BKF Scheduled PRN Docusate Sodium (Docusate Sodium), 100 MG PO BID PRN for constipation Miscellaneous Medications Home Med List (No Home Medications), (Reported) Past Medical History Past Medical History: CVA/TIA/Stroke, Seizures, *GI/HEPATOBILIARY*, Peptic Ulcer Disease, Kidney Stones, UTI Past Surgical History: , other Patient History: Patient reports no known family medical history. Alcohol Use: None Drug Use: none Lives with: Family Lives In: Home Occupation: unemployed Review of Systems ROS All review of systems negative except as per HPI Physical Exam Vital Signs: Temperature: 98.8, Source: Oral, Heart Rate: 98, Respiratory Rate: 16, BP: 142/86, Pulse Oximetry: 98, Weight: 81.200 Oxygen Flow Rate: 0 Physical Exam General: Patient is awake, alert, oriented x4 in no acute distress and well appearing.~ Head: Normocephalic and atraumatic. Eyes: Conjunctival normal. EOMI. PERRL. ENT: Mucous membranes moist. 10. Incisor appears infected. No abscess Neck: Supple, trachea is midline. Chest: Clear to auscultation bilaterally without rales, rhonchi, or wheezes. There is no accessory muscle use or retractions. Cardiac: RRR without murmurs, gallops, or rubs. Progress Results/Orders Results/Orders Orders - MIKEY GALLEGOS MD Amoxicillin Capsule (Trimox Capsule) (06/18/25 03:25) Ondansetron Disint. Tablet (Zofran Odt T (06/18/25 03:25) Ketorolac Trometh 15mg/Ml Vial (Toradol (06/18/25 03:25) Acetaminophen 325mg Tablet (Tylenol Tabl (06/18/25 03:25) Vital Signs 06/18/25 01:43 Temp 98.8 Pulse 98 Resp 16 B/P (MAP) 142/86 Pulse Ox 98 O2 Flow Rate 0 Medical Decision Making Additional information obtaine: old records Findings Patient presents to the emergency room with dental pain. We will begin antibiotics with instructions to follow up with a dentist. He had not feel patient requires CT scan Differential Dx:Considerations: Include: Alveolar fracture, Alveolar osteitis, ANUG, Facial Cellulitis, Periapical abscess, Peridontal abscess, Post-extraction bleeding, Pulpitis, Tooth avulsion, Tooth eruption, Tooth Fracture, Trigeminal neuralgia, Tooth subluxation, Other Departure Disposition: 01 HOME / SELF CARE / HOMELESS Impression: Primary Impression: Toothache Condition: Stable Discharge Instructions: Dental Pain Referrals: NO PRIMARY CARE PROVIDER (PCP) Prescriptions Amoxicillin Trihydrate* (Amoxicillin*) 500 Mg Capsule 1 CAP PO Q8H for 10 Days, #30 CAP Prov: MIKEY GALLEGOS MD 06/18/25 Education Educated: Patient Signature Scribe Signature: No scribe Attestation: The note accurately reflects work and decisions made by me.Mikey Gallegos MD 06/18/25 03:30 MIKEY GALLEGOS MD Jun 18, 2025 03:30
[2025-06-18] MEDS: ondansetron 4mg rapidly disintigrating tab PO ONE (03:45)
[2025-06-18] MEDS: ketorolac trometh 15mg/ml vial 15 MG/ML ML IM ONE (03:46)
[2025-06-18 03:53] VITALS: TEMP 98.8
== END 2025-06-18 03:58 | disposition home or self-care (01) ==
LOC: ER 01:35
DX: K08.89 Other specified disorders of teeth and supporting structures (principal); Z56.0 Unemployment, unspecified; Z86.73 Personal history of transient ischemic attack (TIA), and cerebral infarction without residual deficits; Z87.11 Personal history of peptic ulcer disease; Z87.440 Personal history of urinary (tract) infections; Z88.2 Allergy status to sulfonamides; Z88.5 Allergy status to narcotic agent; Z79.82 Long term (current) use of aspirin; Z79.899 Other long term (current) drug therapy; Z87.442 Personal history of urinary calculi; Z98.890 Other specified postprocedural states
CPT/HCPCS: 96372; 99284; J1885